=== PATIENT | male | born 1930 | race Caucasian/White ===

== ENCOUNTER 2017-10-15 06:43 | Day surgery (SDC) | payer MEDICARE ==
[2017-10-15] MEDS ORDERED: Propofol 200 MG/20 ML SDV ONE (07:03)
[2017-10-15] MEDS ORDERED: Dextrose 5%-Lactated Ringers 1,000 ML IV SCH (07:30)
[2017-10-15] MEDS ORDERED: Pantoprazole 40 MG Vial IVPUSH ONE (09:20)
[2017-10-15 10:06] VITALS: BP 140/71
--- NOTE | 2017-10-24 22:33 | OR ---
DATE OF PROCEDURE: 10/15/2017 PREOPERATIVE DIAGNOSIS: Probable gastroesophageal reflux disease. POSTOPERATIVE DIAGNOSES: 1. Active gastroesophageal reflux disease associated with a moderate-sized hiatal hernia and large area of ulceration at esophagogastric junction. 2. Diffuse intense gastritis. OPERATIVE PROCEDURES: Esophagogastroduodenoscopy with; 1. Biopsies of antrum for CLOtest (42003). 2. Brushings of esophageal ulcer (05072). ANESTHESIA: IV sedation. INDICATION FOR PROCEDURE: An 86-year-old male presenting with quite marked epigastric pain and heartburn. He is presently on omeprazole 40 mg a day. The plan is to proceed with upper GI endoscopy with biopsies as indicated. Potential risks including bleeding and perforation were discussed, and the patient wishes to proceed. DETAILS OF PROCEDURE: The patient was taken to the operating room and placed in a left lateral decubitus position. IV sedation was administered, after which the upper GI endoscope was passed orally through the length of the esophagus and into the stomach with retroflexion view of the fundus, and thereafter through the pyloric channel and into the proximal duodenum. Findings included normal hypopharynx, larynx, upper esophageal sphincter, and esophageal body. At the EG junction, the patient was noted to have a moderate-sized hiatal hernia and quite intense esophagitis present. There is a large ulcer located more or less right at the esophagogastric junction, covered with some fibrinous exudate. This tissue was quite friable. There was no stricture or gross evidence of neoplasia. Within the stomach, there was more or less diffuse gastritis, which was fairly intense, particularly in the antrum. The pyloric channel and visualized portions of the duodenum were unremarkable. At this point, biopsies were obtained from the antrum and sent for CLOtest for H. pylori and then brushings were obtained from the esophageal ulcer rather than biopsies given the patient's coumadinized state and that tissue being quite friable and thought to be at risk for post- biopsy bleeding. Two sets of brushings were made dragging up the brush across the area of ulceration and minimal bleeding from either the biopsy site in antrum or the brushing site was noted. At this point, the scope was then withdrawn, and the procedure then concluded. At this point, we will have the patient hold omeprazole. We will start him on Protonix 40 mg daily and also 1 gram of Carafate p.o. q.i.d. The patient will be scheduled for a repeat upper endoscopy in 4 weeks to determine whether or not things are healed. He will be instructed to hold his Coumadin for 5 days prior to that procedure in the event that we want to do some additional biopsies in the area of the esophagogastric junction. Juan Cantrell MD /[id number]
== END 2017-10-15 10:31 ==
LOC: JP.SDS 06:43
PROVIDERS: ATTEND Surgery
DX: K21.9 Gastro-esophageal reflux disease without esophagitis (principal); K22.10 Ulcer of esophagus without bleeding; K29.70 Gastritis, unspecified, without bleeding; K20.9 Esophagitis, unspecified; K44.9 Diaphragmatic hernia without obstruction or gangrene; I25.10 Atherosclerotic heart disease of native coronary artery without angina pectoris; E78.5 Hyperlipidemia, unspecified; I69.354 Hemiplegia and hemiparesis following cerebral infarction affecting left non-dominant side; I48.91 Unspecified atrial fibrillation; Z79.899 Other long term (current) drug therapy; Z88.0 Allergy status to penicillin
CPT/HCPCS: 36415; 43239; 85610; 87081; 88112; 88305; C9113; J2704; J7042

== ENCOUNTER 2017-11-12 06:58 | Day surgery (SDC) | payer MEDICARE ==
[2017-11-12] MEDS ORDERED: Dextrose 5%-Lactated Ringers 1,000 ML IV SCH (07:30)
[2017-11-12] MEDS ORDERED: Albuterol/Ipratropium 3.0-0.5 MG/3 ML Neb Soln NEB ONE (07:45)
[2017-11-12] MEDS ORDERED: Glycopyrrolate 0.2 MG/ML 2 ML SDV IVPUSH ONE (08:00)
[2017-11-12] MEDS ORDERED: Propofol 200 MG/20 ML SDV ONE (08:05)
[2017-11-12 09:30] VITALS: BP 116/76
--- NOTE | 2017-11-15 09:14 | OR ---
DATE OF PROCEDURE: 11/12/2017 PREOPERATIVE DIAGNOSIS: History of severe gastroesophageal reflux disease. POSTOPERATIVE DIAGNOSES: 1. Healed esophagitis. 2. Mild antral gastritis. OPERATIVE PROCEDURE: Esophagogastroduodenoscopy with antral biopsies for CLOtest. ANESTHESIA: IV sedation. INDICATIONS FOR PROCEDURE: This is an 87-year-old male with severe esophagitis. He had been on omeprazole at that point, and after that area had been evaluated, he was switched to Protonix plus Carafate and seems to be less symptomatic. At this point, plan is to repeat upper endoscopy with biopsies and/or dilation as indicated. Potential risks including bleeding and perforation were reviewed, and the patient wishes to proceed. DETAILS OF PROCEDURE: The patient was taken to the operating room and placed in a left lateral decubitus position. IV sedation was administered, after which the upper GI endoscope was passed orally through the length of the esophagus and stomach with retroflexion view of the fundus, and thereafter through the pyloric channel into the proximal duodenum. Findings at this time showed the previously quite severe esophagitis to be entirely healed. The mucosa was entirely smooth then with no signs of redness, friability, and appeared to be remarkably well-healed at this time. The patient did, as expected, have some degree of hiatal hernia. Within the stomach, there was some mild redness in the antrum. Biopsies were obtained and they were sent for CLOtest for H. pylori. Minimal bleeding from the biopsy site was seen and the procedure then concluded. Given the patient previously had been on proton pump inhibitor alone but still had the severe esophagitis, I would recommend keeping him on the combination of Carafate and Protonix long-term which he seems to be tolerating, and followup endoscopy may be necessary only if new symptoms develop. Juan Cantrell MD /[id number]
== END 2017-11-12 10:11 ==
LOC: JP.SDS 06:58
PROVIDERS: ATTEND Surgery
DX: K21.9 Gastro-esophageal reflux disease without esophagitis (principal); K44.9 Diaphragmatic hernia without obstruction or gangrene; K29.70 Gastritis, unspecified, without bleeding; J44.9 Chronic obstructive pulmonary disease, unspecified; E78.5 Hyperlipidemia, unspecified
CPT/HCPCS: 43239; 87081; 94640; J2704; J7042; J7620; J3490

== ENCOUNTER 2018-01-27 15:49 | Inpatient (IN) | payer MEDICARE, MEDICAID ==
[2018-01-27] MEDS ORDERED: Albuterol 0.083% 2.5 MG/3 ML Neb Soln NEB PRN (16:21)
[2018-01-27] MEDS ORDERED: Furosemide 40 MG/4 ML VIAL IVPUSH ONE (16:22)
[2018-01-27] MEDS ORDERED: Polyethylene Glycol 3350 Powder 17 GM Packet PO PRN (16:48)
[2018-01-27] MEDS ORDERED: Ondansetron 4 MG Tab.DIS PO PRN (16:48)
[2018-01-27] MEDS ORDERED: Sodium Chloride 0.9% 10 ML Syringe FLUSH PRN (16:48)
--- NOTE | 2018-01-27 17:01 | PCM.HP ---
H&P History of Present Illness - General Date of Service: 01/27/18 Admit Problem/Dx: Admission Diagnosis/Problem Admission Diagnosis/Problem CHF, Congestive heart failure Source of Information: Patient, Provider History Limitations: Reports: Other (hard of hearing) - History of Present Illness Initial Comments - Free Text/Narative: John presents today as a direct admission from the walk-in clinic where he presented with shortness of breath and wheezing. History is a little bit difficult to gather because he is hard of hearing. he was seen in the long-term a week ago and thought to be in mild congestive heart failure and was started on a low dose of furosemide. Despite this he has had slow progression of his shortness of breath and intermittent wheezing. He reports mild chest tightness that has been present for approximately one month. He does feel short of breath but doesn't think he's been coughing very much. He is not aware of any fevers. He reports a funny feeling in his head that he has some difficulty describing. He says it's kind of a dizziness. He does not endorse headache. He has some mild generalized abdominal pain that has been present for at least 2 weeks. No bowel movement for several days. He reports years of difficulty with passing urine but this is not any worse than usual. He was seen in the clinic today and noted to have increased work of breathing. Chest x-ray was concerning for congestive heart failure. He was admitted for further management. - Related Data Allergies/Adverse Reactions: Allergies Allergy/AdvReac Type Severity Reaction Status Date / Time Penicillins Allergy Intermediate Dizziness Verified 11/12/17 07:17 Latex, Natural Rubber Allergy Rash Verified 11/12/17 07:17 Home Medications: Home Meds Alendronate Sodium [Fosamax] 70 mg PO .WEEKLY 12/13/14 [History] Budesonide [Pulmicort] 2 ml IH BID 12/13/14 [History] Gabapentin [Neurontin] 300 mg PO BEDTIME 12/13/14 [History] Metoprolol Tartrate 12.5 mg PO BID 12/13/14 [History] Multivitamin [Multivitamins] 1 cap PO DAILY 12/13/14 [History] Tamsulosin [Flomax] 0.4 mg PO BEDTIME 12/13/14 [History] levETIRAcetam [Keppra] 500 mg PO BID 12/13/14 [History] predniSONE [Prednisone] 4 mg PO QAM 12/13/14 [History] Ipratropium/Albuterol Sulfate [Iprat-Albut 0.5-3(2.5) mg/3 ml] 1 ampule IH QID 08/12/15 [History] Acetaminophen [Tylenol] 650 mg PO QID 10/14/17 [History] Ipratropium [Atrovent 0.03% Nasal [place]] 2 spray INH BID 10/14/17 [History] Linaments 1 pad TOP DAILY PRN 10/14/17 [History] Menthol/Methyl Salicylate [BenGay Ultra Strength Crm] 1 applic TOP QID 10/14/17 [History] Leuprolide Acetate [Lupron Depot (Lupaneta)] 30 mg IM ASDIRECTED 10/15/17 [ History] Hydrocortisone [Hydrocortisone 2.5% Crm] 1 applic TOP TID PRN 11/07/17 [History] Sucralfate [Carafate] 1 gm PO QID 11/12/17 [History] Acetaminophen 650 mg PO Q6H PRN 01/27/18 [History] Albuterol/Ipratropium [DuoNeb 3.0-0.5 MG/3 ML] 3 ml INH Q4H PRN 01/27/18 [ History] Calcium Carbonate/Vitamin D3 [Calcium 600-Vit D3 800 Tablet] 1 tab PO BID [History] Carboxymethylcellulose Sodium [Refresh Tears] 1 drop EYEBOTH BID 01/27/18 [ History] Furosemide 20 mg PO DAILY 01/27/18 [History] Olopatadine [Patanol 0.1% [facility]] 2 drop EYEBOTH BID 01/27/18 [History] Pantoprazole [ProTONIX] 40 mg PO DAILY 01/27/18 [History] Sertraline [Zoloft] 25 mg PO DAILY 01/27/18 [History] Simvastatin [Zocor] 40 mg PO BEDTIME 01/27/18 [History] Warfarin [Coumadin] 7.5 mg PO ASDIRECTED 01/27/18 [History] Warfarin [Coumadin] 10 mg PO WEEKLY 01/27/18 [History] Past Medical History HEENT History: Reports: Hard of Hearing, Impaired Vision, Macular Degeneration Cardiovascular History: Reports: Afib, CAD, High Cholesterol, Hypertension Respiratory History: Reports: COPD Gastrointestinal History: Reports: Cholelithiasis, Chronic Constipation, GERD Genitourinary History: Reports: BPH Other Genitourinary History: prostate ca Musculoskeletal History: Reports: Other (See Below) Other Musculoskeletal History: patient states broke left hip in 2015. Neurological History: Reports: CVA, Seizure Psychiatric History: Reports: Depression Endocrine/Metabolic History: Reports: Diabetes, Type II Hematologic History: Reports: Anticoagulation Therapy Oncologic (Cancer) History: Reports: Prostate Dermatologic History: Reports: None - Infectious Disease History Infectious Disease History: Reports: Chicken Pox, Measles, Mumps - Past Surgical History HEENT Surgical History: Reports: None Cardiovascular Surgical History: Reports: Coronary Artery Bypass Respiratory Surgical History: Reports: None GI Surgical History: Reports: Cholecystectomy, EGD Male Surgical History: Reports: None Endocrine Surgical History: Reports: None Neurological Surgical History: Reports: None Social & Family History - Family History Cardiac: Reports: CAD - Tobacco Use Smoking Status *Q: Current Every Day Smoker - Caffeine Use Caffeine Use: Reports: Coffee - Alcohol Use Alcohol Use History: No H&P Review of Systems - Review of Systems: Review Of Systems: See Below Free Text/Narrative: A complete 12 point review of systems was obtained. Pertinent positives and negatives are noted in the history of present illness. All other systems were reviewed and were negative except as noted. Exam - Exam Exam: See Below - Vital Signs Vital Signs: Last Vital Signs Temp 36.3 C 01/27/18 16:15 Pulse 84 01/27/18 16:15 Resp 20 01/27/18 16:15 BP 134/88 01/27/18 16:15 Pulse Ox 94 L 01/27/18 16:15 - Exam Quality Assessment: No: Supplemental Oxygen General: Alert, Oriented, Cooperative, Mild Distress (increased work of breathing) HEENT: Conjunctiva Clear, Mucosa Moist & [place]. No: Scleral Icterus Neck: Supple, Trachea Midline. No: Lymphadenopathy Lungs: Crackles (both lung bases), Wheezing (moderate expiratory). No: Normal Respiratory Effort (increased work of breathing) Cardiovascular: Regular Rate, Regular Rhythm, Systolic Murmur GI/Abdominal Exam: Soft, Non-Tender, Tender, Abnormal Bowel Sounds (hypoactive) Extremities: Pedal Edema. No: Increased Warmth Peripheral Pulses: 2+: Dorsalis Pedis (L), Dorsalis Pedis (R) Skin: Warm, Dry Neuro Extensive - Mental Status: Alert, Normal Mood/Affect Neuro Extensive - Motor, Sensory, Reflexes: CN II-XII Intact. No: Dysarthria, Tremor Psychiatric: Alert, Normal Affect - Patient Data Lab Results Last 24 hrs: Laboratory Results - last 24 hr 01/27/18 Range/Units 16:40 WBC 7.1 (4.5-11.0) K/uL RBC 3.47 L (4.30-5.90) M/uL Hgb 11.9 L (12.0-15.0) g/dL Hct 36.1 L (40.0-54.0) % MCV 104 H (80-98) fL MCH 34 H (27-31) pg MCHC 33 (32-36) % Plt Count 285 (150-400) K/uL Neut % (Auto) 64 (36-66) % Lymph % (Auto) 25 (24-44) % Rooks % (Auto) 10 H (2-6) % Eos % (Auto) 1 L (2-4) % Baso % (Auto) 0 (0-1) % Result Diagrams: 01/27/18 16:40 Imaging Impressions Last 24 hrs: chest x-ray - images from the clinic were personally reviewed - there is evidence for cardiomegaly as well as small bilateral effusions, right slightly greater than left. There is pulmonary vascular congestion and slightly asymmetric interstitial changes with the right more prominent than the left. Findings appear very compatible with congestive heart failure. *Q Meaningful Use (ADM) - VTE Risk Assess *Q Each Risk Factor Represents 1 Point: Swollen Legs, Current, Obesity ( BMI > 25 kg/m2), Congestive heart failure (CHF), Abnormal Pulmonary Function (COPD) Total Score 1 Point Risk Factors: 4 Each Risk Factor Represents 2 Points: Malignancy (present or previous) Total Score 2 Point Risk Factors: 2 Each Risk Factor Represents 3 Points: Age 75 Years or Greater Total Score 3 Point Risk Factors: 3 Each Risk Factor Represents 5 Points: None Total Score 5 Point Risk Factors: 0 Venous Thromboembolism Risk Factor Score *Q: 9 - Problem List (1) Congestive heart failure SNOMED Code(s): 24847987 ICD Code: I50.9 - HEART FAILURE, UNSPECIFIED Status: Acute Current Visit : Yes Qualifiers: Heart failure type: diastolic Heart failure chronicity: acute on chronic Qualified Code(s): I50.33 - Acute on chronic diastolic (congestive) heart failure (2) Paroxysmal atrial fibrillation SNOMED Code(s): 313285956 ICD Code: I48.0 - PAROXYSMAL ATRIAL FIBRILLATION Status: Chronic Current Visit: Yes (3) Coronary artery disease SNOMED Code(s): 37919850 ICD Code: I25.10 - ATHSCL HEART DISEASE OF [place] CORONARY ARTERY W/O ANG PCTRS Status: Chronic Current Visit: Yes Qualifiers: Coronary Disease-Associated Artery/Lesion type: [place]ig artery [place] vs. transplanted heart: craig heart Associated angina: without angina Qualified Code(s): I25.10 - Atherosclerotic heart disease of [place] coronary artery without angina pectoris (4) Cerebrovascular disease SNOMED Code(s): 68111700 ICD Code: I67.9 - CEREBROVASCULAR DISEASE, UNSPECIFIED Status: Chronic Current Visit: Yes (5) Prostate cancer SNOMED Code(s): 615780618 ICD Code: C61 - MALIGNANT NEOPLASM OF PROSTATE Status: Chronic Current Visit: Yes Problem List Initiated/Reviewed/Updated: Yes Orders Last 24hrs: Active Orders 24 hr Category Date Time Status Patient Status [ADT] Routine ADT 01/27/18 16:49 Ordered Bedrest Bathroom Privileges [RC] ASDIRECTED Care 01/27/18 16:48 Ordered EKG Documentation Completion [RC] ASDIRECTED Care 01/27/18 16:22 Ordered Height and Weight [RC] DAILY Care 01/27/18 16:48 Ordered Insert Bañuelos Catheter [Insert Urinary Catheter] [OM.PC] Care 01/27/18 16:30 Ordered Q24H Intake and Output [RC] QSHIFT Care 01/27/18 16:50 Ordered Notify Provider Vital Signs [RC] ASDIRECTED Care 01/27/18 16:50 Ordered Oxygen Therapy [RC] PRN Care 01/27/18 16:49 Ordered RT Aerosol Therapy [RC] ASDIRECTED Care 01/27/18 16:21 Ordered Up With Assistance [RC] ASDIRECTED Care 01/27/18 16:48 Ordered Urinary Catheter Assessment [RC] ASDIRECTED Care 01/27/18 16:22 Ordered VTE/DVT Education [RC] Per Unit Routine Care 01/27/18 16:49 Ordered Vital Signs [RC] Q4H Care 01/27/18 16:49 Ordered 2 Gram Sodium Diet [DIET] Diet 01/27/18 Dinner Ordered Echo Comp wo Cont [US] Routine Exams 01/28/18 07:00 Ordered BASIC METABOLIC PANEL,BMP [CHEM] AM Lab 01/28/18 05:11 Ordered BASIC METABOLIC PANEL,BMP [CHEM] Urgent Lab 01/27/18 16:21 Ordered INR,PT,PROTHROMBIN TIME [COAG] AM Lab 01/28/18 05:11 Ordered INR,PT,PROTHROMBIN TIME [COAG] Urgent Lab 01/27/18 16:22 Ordered MAGNESIUM [CHEM] Urgent Lab 01/27/18 16:22 Ordered TROPONIN I [CHEM] Urgent Lab 01/27/18 16:22 Ordered TSH ULTRASENSITIVE [CHEM] Urgent Lab 01/27/18 16:22 Ordered UA W/MICROSCOPIC [URIN] Routine Lab 01/27/18 16:48 Ordered Acetaminophen [Tylenol] Med 01/27/18 16:21 Ordered 650 mg PO Q4H PRN Acetaminophen [Tylenol] Med 01/27/18 22:00 Ordered 650 mg PO QID Albuterol [Proventil Neb Soln] Med 01/27/18 16:21 Ordered 2.5 mg NEB Q4H PRN Albuterol/Ipratropium [DuoNeb 3.0-0.5 MG/3 ML] Med 01/27/18 22:00 Ordered 1 ampule INH QID Budesonide [Pulmicort] Med 01/27/18 21:00 Ordered 0.5 mg INH BID Carboxymethylcellulose Sodium [Refresh Tears] Med 01/27/18 21:00 Ordered 1 drop EYEBOTH BID Docusate Sodium/Sennosides [Senna Plus] Med 01/27/18 16:48 Ordered 1 tab PO BID PRN Furosemide [Lasix] Med 01/28/18 09:00 Ordered 40 mg IVPUSH DAILY Gabapentin [Neurontin] Med 01/27/18 21:00 Ordered 300 mg PO BEDTIME Ipratropium [Atrovent 0.03% Nasal [place]] Med 01/27/18 21:00 Ordered 2 spray RAFAT BID Metoprolol Tartrate [Lopressor] Med 01/27/18 21:00 Ordered 12.5 mg PO BID Olopatadine [Patanol 0.1% Ophth Soln] Med 01/27/18 21:00 Ordered 2 drop EYEBOTH BID Ondansetron [Zofran ODT] Med 01/27/18 16:48 Ordered 4 mg PO Q6H PRN Pantoprazole [ProTONIX] Med 01/28/18 09:00 Ordered 40 mg PO DAILY Polyethylene Glycol 3350 [MiraLAX] Med 01/27/18 16:48 Ordered 17 gm PO DAILY PRN Sertraline [Zoloft] Med 01/28/18 09:00 Ordered 25 mg PO DAILY Simvastatin [Zocor] Med 01/27/18 21:00 Ordered 40 mg PO BEDTIME Sodium Chloride 0.9% [Saline Flush] Med 01/27/18 16:48 Ordered 10 ml FLUSH ASDIRECTED PRN Sucralfate [Carafate] Med 01/27/18 22:00 Ordered 1 gm PO QID Tamsulosin [Flomax] Med 01/27/18 21:00 Ordered 0.4 mg PO BEDTIME Warfarin [Coumadin] Med 01/28/18 13:00 Ordered 7.5 mg PO DAILY@1300 levETIRAcetam [Keppra] Med 01/27/18 21:00 Ordered 500 mg PO BID predniSONE Med 01/28/18 09:00 Ordered 4 mg PO QAM Saline Lock Insert [OM.PC] Routine Oth 01/27/18 16:48 Ordered Resuscitation Status Routine Resus Stat 01/27/18 16:48 Ordered EKG 12 Lead [EK] Urgent Ther 01/27/18 16:22 Ordered Medication Orders Acetaminophen (Tylenol) 650 mg PO Q4H PRN PRN Reason: Pain/Fever Acetaminophen (Tylenol) 650 mg PO QID AGNES Albuterol (Proventil Neb Soln) 2.5 mg NEB Q4H PRN PRN Reason: Shortness of Breath Albuterol/Ipratropium (Duoneb 3.0-0.5 Mg/3 Ml) ml INH QID AGNES Budesonide (Pulmicort) 0.5 mg INH BID AGNES Furosemide (Lasix) 40 mg IVPUSH DAILY AGNES Gabapentin (Neurontin) 300 mg PO BEDTIME AGNES Ipratropium [place] (Atrovent 0.03% Nasal [place]) ml RAFAT BID AGNES Metoprolol Tartrate (Lopressor) 12.5 mg PO BID [facility] Non-Formulary Medication (Carboxymethylcellulose Sodium [Refresh Tears]) 1 drop EYEBOTH BID AGNES Non-Formulary Medication (Levetiracetam [Keppra]) 500 mg PO BID [facility] Non-Formulary Medication (Olopatadine [Patanol 0.1% Ophth Soln]) 2 drop EYEBOTH BID AGNES Non-Formulary Medication (Simvastatin [Zocor]) 40 mg PO BEDTIME [facility] Non-Formulary Medication (Warfarin [Coumadin]) 7.5 mg PO DAILY@1300 [facility] Ondansetron HCl (Zofran Odt) 4 mg PO Q6H PRN PRN Reason: Nausea able to take PO Pantoprazole Sodium (Protonix) 40 mg PO DAILY [facility] Polyethylene Glycol (Miralax) 17 gm PO DAILY PRN PRN Reason: Constipation Prednisone (Prednisone) 4 mg PO QAM [facility] Senna/Docusate Sodium (Senna Plus) 1 tab PO BID PRN PRN Reason: Constipation Sertraline HCl (Zoloft) 25 mg PO DAILY [facility] Sodium Chloride (Saline Flush) 10 ml FLUSH ASDIRECTED PRN PRN Reason: Keep Vein Open Sucralfate (Carafate) 1 gm PO QID [facility] Tamsulosin HCl (Flomax) 0.4 mg PO BEDTIME [facility] Assessment/Plan Comment:: ASSESSMENT AND PLAN - Congestive heart failure - history of diastolic dysfunction on most recent echocardiogram. Chest x-ray and history compatible with congestive heart failure and examination fits as well. Cardiac silhouette does appear larger and he would benefit from reevaluation of left ventricular function. He has been on low-dose diuretics as outpatient but continues to be getting worse. He is not currently hypoxic but does have increased work of breathing. -Place Bañuelos catheter -Furosemide 40 mg 1 now -Basic metabolic panel -strict intake and output monitoring -Daily weights -Echocardiogram in the morning Paroxysmal atrial fibrillation - currently appears to be in sinus but EKG is pending. He is chronically anticoagulated. -Continue beta katherin -Continue anticoagulation, pending INR results Coronary artery disease - patient reports one month of chest pain though his story is atypical and I suspect not related to coronary artery disease. 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 -Continue antiepileptic medication Maintenance issues - - DVT prophylaxis - warfarin - GI prophylaxis - PPI - Nutrition - low sodium - Bañuelos catheter - will be placed for strict intake and output monitoring in the setting of urinary obstruction secondary to prostate cancer. CODE STATUS - DNR/DNI Admission justification - This patient will be admitted for inpatient services and is medically appropriate meeting medical necessity for inpatient admission as outlined in my documentation. I reasonably expect the patient will require inpatient services that span a period time over 2 midnights. I reasonably expect this patient to be discharged or transferred within [address] [facility]. Disposition - anticipate discharge back to the long-term after the hospital stay Primary care physician - Dr Karla Qiu M.D.
[2018-01-27] MEDS ORDERED: Aspirin 81 MG Tab.Chew PO ONE (17:42)
--- NOTE | 2018-01-27 17:45 | PCM.SN ---
- Free Text/Narrative Note: troponin level returned elevated at 2.3. EKG showed some nonspecific T-wave changes and slight ST depressions in leads 1, aVL and V5 and V6. I discussed the situation with the patient, his and 2 daughters. He will be receiving aspirin. He will have morphine for pain. We will get serial troponin levels and determine the course of action tomorrow morning unless his condition worsens overnight since there is no obvious reason for urgent/emergent transfer at this time. His daughters report that he has been having chest pain for several days and he told me for the past month. Serial troponin levels should give us a better idea of the troponin trend. Echocardiogram will also be available in the morning. Jose Enrique Qiu MD
[2018-01-27] MEDS: Acetaminophen 325 MG Tab PO PRN (18:06)
[2018-01-27] MEDS: Morphine 2 MG/ML Syringe IVPUSH PRN ×3 (18:07→23:19)
[2018-01-27] MEDS ORDERED: Aspirin 81 MG Tab.Chew ONE (18:15)
[2018-01-27] MEDS ORDERED: Budesonide 0.5 MG/2 ML Neb Susp INH SCH (21:00)
[2018-01-27] MEDS: levETIRAcetam 250 MG Tab PO SCH (21:03)
[2018-01-27] MEDS: Sucralfate 1 GM Tab PO SCH (21:04)
[2018-01-27] MEDS: Acetaminophen 325 MG Tab PO SCH (21:04)
[2018-01-27] MEDS: Tamsulosin 0.4 MG Cap.ER PO SCH (21:04)
[2018-01-27] MEDS: Gabapentin 300 MG Cap PO SCH (21:04)
[2018-01-27] MEDS: Simvastatin 20 MG Tab PO SCH (21:05)
[2018-01-27] MEDS: Albuterol/Ipratropium 3.0-0.5 MG/3 ML Neb Soln INH SCH (21:05)
[2018-01-27] MEDS: Metoprolol Tartrate 25 MG Tab PO SCH (21:05)
[2018-01-27] MEDS: Hypromellose 0.4% Ophth Soln 15 ML Bottle EYEBOTH SCH (21:06)
[2018-01-27] MEDS: Ketotifen 0.025% Ophth Soln 5 ML Bottle EYEBOTH SCH (21:06)
[2018-01-27] MEDS: Ipratropium 0.03% Nasal Spray 30 ML Bot NAS SCH (21:20)
[2018-01-28] MEDS: Acetaminophen 325 MG Tab PO PRN (00:04)
[2018-01-28] MEDS: Morphine 2 MG/ML Syringe IVPUSH PRN ×4 (01:01→23:17)
[2018-01-28] MEDS: Sucralfate 1 GM Tab PO SCH ×5 (06:24→21:01)
[2018-01-28] MEDS: Acetaminophen 325 MG Tab PO SCH ×4 (06:25→21:02)
[2018-01-28] MEDS: Albuterol/Ipratropium 3.0-0.5 MG/3 ML Neb Soln INH SCH ×5 (06:25→21:02)
--- NOTE | 2018-01-28 07:54 | PCM.SN ---
- Free Text/Narrative Note: call from 2 [facility] lab results O Troponin at 1600 2.307, 8pm 2.109, 0400 2.320 vital signs stable,denies chest pain or shortness of breath a; troponin elevated but stable p; continue to monitor.
[2018-01-28] MEDS: Budesonide 0.5 MG/2 ML Neb Susp INH SCH ×2 (07:55→21:02)
[2018-01-28] MEDS: Pantoprazole 40 MG Tab.CR PO SCH (08:41)
[2018-01-28] MEDS: Ipratropium 0.03% Nasal Spray 30 ML Bot NAS SCH ×2 (08:41→21:01)
[2018-01-28] MEDS: Aspirin 81 MG Tab.EC PO SCH (08:41)
[2018-01-28] MEDS: Ketotifen 0.025% Ophth Soln 5 ML Bottle EYEBOTH SCH ×2 (08:42→20:58)
[2018-01-28] MEDS: levETIRAcetam 250 MG Tab PO SCH ×2 (08:42→20:59)
[2018-01-28] MEDS: Metoprolol Tartrate 25 MG Tab PO SCH ×2 (08:50→20:58)
[2018-01-28] MEDS: Hypromellose 0.4% Ophth Soln 15 ML Bottle EYEBOTH SCH ×2 (08:50→20:58)
[2018-01-28] MEDS: Sertraline 25 MG Tab PO SCH (08:51)
[2018-01-28] MEDS ORDERED: Furosemide 40 MG/4 ML VIAL IVPUSH SCH (09:00)
[2018-01-28] MEDS ORDERED: predniSONE 1 MG Tab PO SCH (09:00)
--- NOTE | 2018-01-28 09:20 | PCM.PN ---
- General Info Date of Service: 01/28/18 - Review of Systems General: Reports: Weakness. Denies: Fever Pulmonary: Reports: Shortness of Breath Cardiovascular: Reports: Chest Pain Neurological: Reports: Confusion Systems Review Comment:: There were no acute events overnight. Patient did have several doses of morphine for headache. Urine output was not impressive after the dose of furosemide. He is on supplemental oxygen this morning. He is somnolent and very difficult to get a history from this morning. He had reported a funny feeling in his head to the night nurses but had not been complaining of chest pain. Serial troponin levels have been elevated but stable at 2.3. - Patient Data Vitals - Most Recent: Last Vital Signs Temp 35.7 C 01/28/18 07:00 Pulse 62 01/28/18 08:50 Resp 20 01/28/18 07:00 BP 97/66 01/28/18 08:50 Pulse Ox 78 L 01/28/18 07:00 Weight - Most Recent: 90.582 kg I&O - Last 24 Hours: Intake & Output 01/27/18 01/28/18 01/28/18 22:59 06:59 14:59 Output Total 550 350 Balance -550 -350 Lab Results Last 24 Hours: Laboratory Results - last 24 hr 01/27/18 01/27/18 01/27/18 Range/Units 16:40 16:40 16:40 WBC 7.1 (4.5-11.0) K/uL RBC 3.47 L (4.30-5.90) M/uL Hgb 11.9 L (12.0-15.0) g/dL Hct 36.1 L (40.0-54.0) % MCV 104 H (80-98) fL MCH 34 H (27-31) pg MCHC 33 (32-36) % Plt Count 285 (150-400) K/uL Neut % (Auto) 64 (36-66) % Lymph % (Auto) 25 (24-44) % [place] % (Auto) 10 H (2-6) % Eos % (Auto) 1 L (2-4) % Baso % (Auto) 0 (0-1) % PT 30.8 H (9.5-12.0) sec INR 2.98 H (0.80-1.20) Sodium 128 L (140-148) mmol/L Potassium 4.7 (3.6-5.2) mmol/L Chloride 95 L (100-108) mmol/L Carbon Dioxide 25 (21-32) mmol/L Anion Gap 12.7 (5.0-14.0) mmol/L BUN 17 D (7-18) mg/dL Creatinine 0.8 (0.8-1.3) mg/dL Est Cr Clr Drug Dosing TNP Estimated GFR (MDRD) > 60 (>60) Glucose 141 H (74-106) mg/dL Calcium 8.5 (8.5-10.1) mg/dL Magnesium (1.8-2.4) mg/dL Troponin I (0.000-0.056) ng/mL TSH, Ultra Sensitive (0.358-3.740) uIU/mL Urine Color Urine Appearance Urine pH (4.5-8.0) Ur Specific [place] (1.008-1.030) Urine Protein (NEGATIVE) mg/dL Urine Glucose (UA) (NEGATIVE) mg/dL Urine Ketones (NEGATIVE) mg/dL Urine Occult Blood (NEGATIVE) Urine Nitrite (NEGAITVE) Urine Bilirubin (NEGATIVE) Urine Urobilinogen (NORMAL) mg/dL Ur Leukocyte Esterase (NEGATIVE) Urine RBC (0-5) Urine WBC (0-5) Ur Epithelial Cells Amorphous Sediment Urine Bacteria Urine Mucus 01/27/18 01/27/18 01/27/18 Range/Units 16:40 19:15 23:00 WBC (4.5-11.0) K/uL RBC (4.30-5.90) M/uL Hgb (12.0-15.0) g/dL Hct (40.0-54.0) % MCV (80-98) fL MCH (27-31) pg MCHC (32-36) % Plt Count (150-400) K/uL Neut % (Auto) (36-66) % Lymph % (Auto) (24-44) % [place] % (Auto) (2-6) % Eos % (Auto) (2-4) % Baso % (Auto) (0-1) % PT (9.5-12.0) sec INR (0.80-1.20) Sodium (140-148) mmol/L Potassium (3.6-5.2) mmol/L Chloride (100-108) mmol/L Carbon Dioxide (21-32) mmol/L Anion Gap (5.0-14.0) mmol/L BUN (7-18) mg/dL Creatinine (0.8-1.3) mg/dL Est Cr Clr Drug Dosing Estimated GFR (MDRD) (>60) Glucose (74-106) mg/dL Calcium (8.5-10.1) mg/dL Magnesium 2.1 (1.8-2.4) mg/dL Troponin I 2.307 H* 2.190 H* (0.000-0.056) ng/mL TSH, Ultra Sensitive 2.090 (0.358-3.740) uIU/mL Urine Color Yellow Urine Appearance Clear Urine pH 6.5 (4.5-8.0) Ur Specific [place] 1.015 (1.008-1.030) Urine Protein Negative (NEGATIVE) mg/dL Urine Glucose (UA) Normal (NEGATIVE) mg/dL Urine Ketones Negative (NEGATIVE) mg/dL Urine Occult Blood Large (NEGATIVE) Urine Nitrite Negative (NEGAITVE) Urine Bilirubin Negative (NEGATIVE) Urine Urobilinogen Normal (NORMAL) mg/dL Ur Leukocyte Esterase Negative (NEGATIVE) Urine RBC 30-40 H (0-5) Urine WBC Not seen (0-5) Ur Epithelial Cells Rare Amorphous Sediment Not seen Urine Bacteria Few Urine Mucus Few 01/28/18 01/28/18 01/28/18 Range/Units 05:00 05:11 05:11 WBC (4.5-11.0) K/uL RBC (4.30-5.90) M/uL Hgb (12.0-15.0) g/dL Hct (40.0-54.0) % MCV (80-98) fL MCH (27-31) pg MCHC (32-36) % Plt Count (150-400) K/uL Neut % (Auto) (36-66) % Lymph % (Auto) (24-44) % [place] % (Auto) (2-6) % Eos % (Auto) (2-4) % Baso % (Auto) (0-1) % PT 27.5 H (9.5-12.0) sec INR 2.64 H (0.80-1.20) Sodium 130 L (140-148) mmol/L Potassium 4.2 (3.6-5.2) mmol/L Chloride 95 L (100-108) mmol/L Carbon Dioxide 29 (21-32) mmol/L Anion Gap 10.2 (5.0-14.0) mmol/L BUN 20 H (7-18) mg/dL Creatinine 0.9 (0.8-1.3) mg/dL Est Cr Clr Drug Dosing 56.04 Estimated GFR (MDRD) > 60 (>60) Glucose 125 H (74-106) mg/dL Calcium 8.7 (8.5-10.1) mg/dL Magnesium (1.8-2.4) mg/dL Troponin I 2.320 H* (0.000-0.056) ng/mL TSH, Ultra Sensitive (0.358-3.740) uIU/mL Urine Color Urine Appearance Urine pH (4.5-8.0) Ur Specific [place] (1.008-1.030) Urine Protein (NEGATIVE) mg/dL Urine Glucose (UA) (NEGATIVE) mg/dL Urine Ketones (NEGATIVE) mg/dL Urine Occult Blood (NEGATIVE) Urine Nitrite (NEGAITVE) Urine Bilirubin (NEGATIVE) Urine Urobilinogen (NORMAL) mg/dL Ur Leukocyte Esterase (NEGATIVE) Urine RBC (0-5) Urine WBC (0-5) Ur Epithelial Cells Amorphous Sediment Urine Bacteria Urine Mucus Med Orders - Current: Current Medications Acetaminophen (Tylenol) 650 mg PO Q4H PRN PRN Reason: Pain/Fever Last Admin: 01/28/18 00:04 Dose: 650 mg Acetaminophen (Tylenol) 650 mg PO QID [facility] Last Admin: 01/28/18 06:25 Dose: 650 mg Albuterol (Proventil Neb Soln) 2.5 mg NEB Q4H PRN PRN Reason: Shortness of Breath Last Admin: 01/27/18 19:35 Dose: 2.5 mg Albuterol/Ipratropium (Duoneb 3.0-0.5 Mg/3 Ml) 3 ml INH QID [facility] Last Admin: 01/28/18 06:25 Dose: 3 ml Artificial Tears (Natural Balance Tears) 0 ml EYEBOTH BID [facility] Last Admin: 01/28/18 08:50 Dose: 1 drop Aspirin (Halfprin) 81 mg PO DAILY [facility] Last Admin: 01/28/18 08:41 Dose: 81 mg Budesonide (Pulmicort) 0.5 mg INH BIDRT [facility] Last Admin: 01/28/18 07:55 Dose: 0.5 mg Furosemide (Lasix) 40 mg IVPUSH DAILY [facility] Gabapentin (Neurontin) 300 mg PO BEDTIME [facility] Last Admin: 01/27/18 21:04 Dose: 300 mg Ipratropium [place] (Atrovent 0.03% Nasal [place]) 0 ml RAFAT BID [facility] Last Admin: 01/28/18 08:41 Dose: 2 spray Ketotifen Fumarate (Ketotifen 0.025% Ophth Soln) 0 ml EYEBOTH BID [facility] Last Admin: 01/28/18 08:42 Dose: 2 drop Levetiracetam (Keppra) 500 mg PO BID [facility] Last Admin: 01/28/18 08:42 Dose: 500 mg Metoprolol Tartrate (Lopressor) 12.5 mg PO BID [facility] Last Admin: 01/28/18 08:50 Dose: 12.5 mg Morphine Sulfate (Morphine) 2 mg IVPUSH Q1H PRN PRN Reason: Chest Pain Last Admin: 01/28/18 07:49 Dose: 2 mg Ondansetron HCl (Zofran Odt) 4 mg PO Q6H PRN PRN Reason: Nausea able to take PO Pantoprazole Sodium (Protonix) 40 mg PO DAILY@0730 [facility] Last Admin: 01/28/18 08:41 Dose: 40 mg Polyethylene Glycol (Miralax) 17 gm PO DAILY PRN PRN Reason: Constipation Prednisone (Prednisone) 4 mg PO QAM [facility] Last Admin: 01/28/18 08:50 Dose: 4 mg Senna/Docusate Sodium (Senna Plus) 1 tab PO BID PRN PRN Reason: Constipation Sertraline HCl (Zoloft) 25 mg PO DAILY [facility] Last Admin: 01/28/18 08:51 Dose: 25 mg Simvastatin (Zocor) 40 mg PO BEDTIME [facility] Last Admin: 01/27/18 21:05 Dose: 40 mg Sodium Chloride (Saline Flush) 10 ml FLUSH ASDIRECTED PRN PRN Reason: Keep Vein Open Sucralfate (Carafate) 1 gm PO QIDACANDBED [facility] Tamsulosin HCl (Flomax) 0.4 mg PO BEDTIME [facility] Last Admin: 01/27/18 21:04 Dose: 0.4 mg Warfarin Sodium (Coumadin) 7.5 mg PO DAILY@1300 [facility] Discontinued Medications Aspirin (Aspirin) 324 mg PO ONETIME ONE Stop: 01/27/18 17:43 Last Admin: 01/27/18 18:16 Dose: 324 mg Aspirin (Aspirin) Confirm Administered Dose 162 mg .ROUTE .STK-MED ONE Stop: 01/27/18 18:16 Last Admin: 01/27/18 18:58 Dose: Not Given Budesonide (Pulmicort) 0.5 mg INH BID [facility] Last Admin: 01/27/18 21:05 Dose: 0.5 mg Furosemide (Lasix) 40 mg IVPUSH ONETIME ONE Stop: 01/27/18 16:23 Last Admin: 01/27/18 17:25 Dose: 40 mg Sucralfate (Carafate) 1 gm PO QID [facility] Last Admin: 01/28/18 06:36 Dose: Not Given - Exam Quality Assessment: Supplemental Oxygen General: Mild Distress. No: Alert, Oriented Neck: Supple Lungs: Decreased Breath Sounds (both bases), Crackles (both bases). No: Normal Respiratory Effort (increased work of breathing), Wheezing Cardiovascular: Regular Rate, Regular Rhythm, Murmurs GI/Abdominal Exam: Soft, No Distention Extremities: Pedal Edema (mild bilateral ankle edema) Skin: Warm, Dry Psy/Mental Status: No: Alert, Anxious - Problem List & Annotations (1) Congestive heart failure SNOMED Code(s): 54391058 Code(s): I50.9 - HEART FAILURE, UNSPECIFIED Status: Acute Current Visit: Yes Qualifiers: Heart failure type: diastolic Heart failure chronicity: acute on chronic Qualified Code(s): I50.33 - Acute on chronic diastolic (congestive) heart failure (2) Paroxysmal atrial fibrillation SNOMED Code(s): 702831846 Code(s): I48.0 - PAROXYSMAL ATRIAL FIBRILLATION Status: Chronic Current Visit: Yes (3) Coronary artery disease SNOMED Code(s): 69351712 Code(s): I25.10 - ATHSCL HEART DISEASE OF [place] CORONARY ARTERY W/O ANG PCTRS Status: Chronic Current Visit: Yes Qualifiers: Coronary Disease-Associated Artery/Lesion type: [place] artery [place] vs. transplanted heart: [place] heart Associated angina: without angina Qualified Code(s): I25.10 - Atherosclerotic heart disease of [place] coronary artery without angina pectoris (4) Cerebrovascular disease SNOMED Code(s): 08232633 Code(s): I67.9 - CEREBROVASCULAR DISEASE, UNSPECIFIED Status: Chronic Current Visit: Yes (5) Prostate cancer SNOMED Code(s): 270448337 Code(s): C61 - MALIGNANT NEOPLASM OF PROSTATE Status: Chronic Current Visit: Yes - Problem List Review Problem List Initiated/Reviewed/Updated: Yes - My Orders Last 24 Hours: My Active Orders 01/27/18 16:21 RT Aerosol Therapy [RC] ASDIRECTED Acetaminophen [Tylenol] 650 mg PO Q4H PRN Albuterol [Proventil Neb Soln] 2.5 mg NEB Q4H PRN 01/27/18 16:22 EKG Documentation Completion [RC] ASDIRECTED Urinary Catheter Assessment [RC] ASDIRECTED EKG 12 Lead [EK] Urgent 01/27/18 16:30 Insert Bañuelos Catheter [Insert Urinary Catheter] [OM.PC] Q24H 01/27/18 16:48 Bedrest Bathroom Privileges [RC] ASDIRECTED Height and Weight [RC] DAILY Up With Assistance [RC] ASDIRECTED Docusate Sodium/Sennosides [Senna Plus] 1 tab PO BID PRN Ondansetron [Zofran ODT] 4 mg PO Q6H PRN Polyethylene Glycol 3350 [MiraLAX] 17 gm PO DAILY PRN Sodium Chloride 0.9% [Saline Flush] 10 ml FLUSH ASDIRECTED PRN Saline Lock Insert [OM.PC] Routine Resuscitation Status Routine 01/27/18 16:49 Patient Status [ADT] Routine Oxygen Therapy [RC] PRN VTE/DVT Education [RC] Per Unit Routine Vital Signs [RC] Q4H 01/27/18 16:50 Intake and Output [RC] QSHIFT Notify Provider Vital Signs [RC] ASDIRECTED 01/27/18 17:42 Telemetry Monitoring [Cardiac Monitoring] [RC] .As Directed Morphine 2 mg IVPUSH Q1H PRN 01/27/18 17:43 EKG Documentation Completion [RC] ASDIRECTED 01/27/18 19:15 UA W/MICROSCOPIC [URIN] Routine 01/27/18 21:00 Gabapentin [Neurontin] 300 mg PO BEDTIME Hypromellose [Natural Balance Tears] 0 ml EYEBOTH BID Ipratropium [Atrovent 0.03% Nasal [place]] 0 ml RAFAT BID Ketotifen [Ketotifen 0.025% Ophth Soln] 0 ml EYEBOTH BID Metoprolol Tartrate [Lopressor] 12.5 mg PO BID Simvastatin [Zocor] 40 mg PO BEDTIME Tamsulosin [Flomax] 0.4 mg PO BEDTIME levETIRAcetam [Keppra] 500 mg PO BID 01/27/18 22:00 Acetaminophen [Tylenol] 650 mg PO QID Albuterol/Ipratropium [DuoNeb 3.0-0.5 MG/3 ML] 3 ml INH QID 01/27/18 Dinner 2 Gram Sodium Diet [DIET] 01/28/18 07:00 Echo Comp wo Cont [US] Routine Budesonide [Pulmicort] 0.5 mg INH BIDRT EKG 12 Lead [EK] Routine 01/28/18 07:30 Pantoprazole [ProTONIX] 40 mg PO DAILY@0730 01/28/18 09:00 Aspirin [Halfprin] 81 mg PO DAILY Furosemide [Lasix] 40 mg IVPUSH DAILY Sertraline [Zoloft] 25 mg PO DAILY predniSONE 4 mg PO QAM 01/28/18 09:18 Chest 1V Frontal [CR] Urgent 01/28/18 10:00 Bumetanide [Bumex] 2 mg IVPUSH ONETIME ONE 01/28/18 11:00 Sucralfate [Carafate] 1 gm PO QIDACANDBED 01/28/18 13:00 Warfarin [Coumadin] 7.5 mg PO DAILY@1300 01/28/18 15:00 TROPONIN I [CHEM] Timed 01/29/18 05:00 BASIC METABOLIC PANEL,BMP [CHEM] Timed CBC W/O DIFF,HEMOGRAM [HEME] Timed (1) INR,PT,PROTHROMBIN TIME [COAG] Timed TROPONIN I [CHEM] Timed - Plan Plan:: ASSESSMENT AND PLAN - Congestive heart failure - history of diastolic dysfunction. Echo today showed mildly reduced ejection fraction, moderate aortic insufficiency as well as moderately severe mitral regurgitation. IVC was dilated. Urine output not impressive with furosemide administered last evening. He has hypoxic this morning. Chest x-ray shows ongoing evidence for pulmonary vascular congestion and pulmonary edema. -Bumetanide 2 mg 1 and reassess volume status this afternoon -strict intake and output monitoring -Supplement oxygen as needed -Daily weights -Continue beta katherin -Blood pressure too low to initiate EVELIO inhibitor at this time Elevated troponin - suspect demand ischemia in the setting of congestive heart failure complicating coronary artery disease with previous bypass surgery. Level has been stable despite the moderate elevation. EKG did show some mild lateral depressions with T-wave inversions in this is slightly better today. No ST elevations were noted. -Repeat level this afternoon and in the morning -Medical management as above Hypoactive delirium - suspect side effects from morphine administered overnight. Head CT did not show any evidence for intracranial bleed and head CT appear stable. -Minimize morphine use as able Paroxysmal atrial fibrillation - currently in sinus rhythm. He is chronically anticoagulated. -Continue beta katherin -Continue anticoagulation Coronary artery disease - off and on chest pain for the past month. Troponin is elevated but I suspect demand ischemia rather than Non-ST myocardial infarction. -Aspirin daily -Continue medical management COPD - he is steroid-dependent though he is only on a low dose. He is now hypoxic. I don't believe there is an active infection but I think he would benefit from increased steroid dosing during the acute phase of his congestive heart failure. 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 -Continue antiepileptic medication Tobacco dependence - patient had been smoking up until the time of admission and has smoked for more than 60 years. -Encourage cessation Encounter for palliative care - patient and family were not interested in transfer or aggressive interventions and prefer that things be treated locally and medically. Maintenance issues - - DVT prophylaxis - warfarin - GI prophylaxis - PPI - Nutrition - low sodium - Bañuelos catheter - placed for strict intake and output monitoring in the setting of urinary obstruction secondary to prostate cancer. Disposition - anticipate [facility] to the [facility] after the hospital stay Jose Enrique Qiu M.D.
[2018-01-28] MEDS ORDERED: Bumetanide 1 MG/4 ML MDV IVPUSH ONE ×2 (10:00→21:00)
[2018-01-28] MEDS: methylPREDNISolone Sodium Succinate 125 MG/2 ML SDV IVPUSH SCH ×2 (12:36→21:01)
[2018-01-28] MEDS: Warfarin 2.5 MG Tab PO SCH (12:38)
--- NOTE | 2018-01-28 13:29 | CT ---
Head wo Cont HISTORY: Head trauma COMPARISON: November 2014. FINDINGS:There is advanced central and cortical cerebral atrophy consistent with age. There is no hem orrhage, mass effect, or edema. There is diffuse low attenuation consistent with encephalomalacia inv olving the bilateral frontal lobes in the majority of the right cerebral hemisphere. The findings lik bren reflect areas of chronic infarct. There is partial resolution of right maxillary sinus consolidat ion. Impression: 1. Chronic atrophy and encephalomalacia. No significant interval change. No acute intracranial findin gs.
[2018-01-28] MEDS ORDERED: WITCH HAZEL TOP PRN (13:45)
[2018-01-28] MEDS ORDERED: Bumetanide 1 MG/4 ML MDV ONE (20:56)
[2018-01-28] MEDS: Gabapentin 300 MG Cap PO SCH (20:57)
[2018-01-28] MEDS: Tamsulosin 0.4 MG Cap.ER PO SCH (21:00)
[2018-01-28] MEDS: Simvastatin 20 MG Tab PO SCH (21:00)
[2018-01-29] MEDS: methylPREDNISolone Sodium Succinate 125 MG/2 ML SDV IVPUSH SCH (04:16)
[2018-01-29] MEDS: Acetaminophen 325 MG Tab PO SCH ×4 (05:05→21:40)
[2018-01-29] MEDS: Budesonide 0.5 MG/2 ML Neb Susp INH SCH ×2 (07:26→20:41)
[2018-01-29] MEDS: Albuterol/Ipratropium 3.0-0.5 MG/3 ML Neb Soln INH SCH ×4 (07:26→20:34)
[2018-01-29] MEDS: Pantoprazole 40 MG Tab.CR PO SCH (08:33)
[2018-01-29] MEDS: Sucralfate 1 GM Tab PO SCH ×4 (08:33→20:27)
[2018-01-29] MEDS: Ipratropium 0.03% Nasal Spray 30 ML Bot NAS SCH ×2 (08:34→20:27)
[2018-01-29] MEDS: levETIRAcetam 250 MG Tab PO SCH ×2 (08:35→20:35)
[2018-01-29] MEDS: Aspirin 81 MG Tab.EC PO SCH (08:35)
[2018-01-29] MEDS: Metoprolol Tartrate 25 MG Tab PO SCH ×2 (08:35→20:35)
[2018-01-29] MEDS: Hypromellose 0.4% Ophth Soln 15 ML Bottle EYEBOTH SCH ×2 (08:36→20:38)
[2018-01-29] MEDS: Ketotifen 0.025% Ophth Soln 5 ML Bottle EYEBOTH SCH ×2 (08:36→20:29)
[2018-01-29] MEDS: Sertraline 25 MG Tab PO SCH (08:37)
--- NOTE | 2018-01-29 09:19 | PCM.PN ---
- General Info Date of Service: 01/29/18 Functional Status: Reports: Pain Controlled, Tolerating Diet - Review of Systems General: Reports: Weakness Pulmonary: Reports: Shortness of Breath Cardiovascular: Reports: Edema Systems Review Comment:: no acute events overnight. Good diuresis yesterday with the bumetanide.patient feels less short of breath today and feels better overall. He reports that he has some mild intermittent chest pain but in general is feeling better. He is much more alert and interactive today and is up in the chair. He has not had any fevers. No bowel movement since admission. Troponin level trending down. - Patient Data Vitals - Most Recent: Last Vital Signs Temp 36.1 C 01/29/18 07:52 Pulse 77 01/29/18 08:35 Resp 20 01/29/18 07:52 BP 118/64 01/29/18 08:35 Pulse Ox 97 01/29/18 07:52 Weight - Most Recent: 90.582 kg I&O - Last 24 Hours: Intake & Output 01/28/18 01/29/18 01/29/18 22:59 06:59 14:59 Intake Total 240 Output Total 740 850 Balance -500 -850 Lab Results Last 24 Hours: Laboratory Results - last 24 hr 01/28/18 01/29/18 01/29/18 Range/Units 15:00 05:37 05:37 WBC 6.0 (4.5-11.0) K/uL RBC 3.57 L (4.30-5.90) M/uL Hgb 12.2 (12.0-15.0) g/dL Hct 37.5 L (40.0-54.0) % MCV 105 H (80-98) fL MCH 34 H (27-31) pg MCHC 33 (32-36) % Plt Count 297 (150-400) K/uL PT 26.0 H (9.5-12.0) sec INR 2.49 H (0.80-1.20) Sodium (140-148) mmol/L Potassium (3.6-5.2) mmol/L Chloride (100-108) mmol/L Carbon Dioxide (21-32) mmol/L Anion Gap (5.0-14.0) mmol/L BUN (7-18) mg/dL Creatinine (0.8-1.3) mg/dL Est Cr Clr Drug Dosing mL/min Estimated GFR (MDRD) (>60) Glucose (74-106) mg/dL Calcium (8.5-10.1) mg/dL Troponin I 1.455 H* (0.000-0.056) ng/mL 01/29/18 Range/Units 05:37 WBC (4.5-11.0) K/uL RBC (4.30-5.90) M/uL Hgb (12.0-15.0) g/dL Hct (40.0-54.0) % MCV (80-98) fL MCH (27-31) pg MCHC (32-36) % Plt Count (150-400) K/uL PT (9.5-12.0) sec INR (0.80-1.20) Sodium 133 L (140-148) mmol/L Potassium 4.5 (3.6-5.2) mmol/L Chloride 94 L (100-108) mmol/L Carbon Dioxide 31 (21-32) mmol/L Anion Gap 12.5 (5.0-14.0) mmol/L BUN 22 H (7-18) mg/dL Creatinine 1.0 (0.8-1.3) mg/dL Est Cr Clr Drug Dosing 50.13 mL/min Estimated GFR (MDRD) > 60 (>60) Glucose 169 H (74-106) mg/dL Calcium 8.9 (8.5-10.1) mg/dL Troponin I 0.967 H* (0.000-0.056) ng/mL Med Orders - Current: Current Medications Acetaminophen (Tylenol) 650 mg PO Q4H PRN PRN Reason: Pain/Fever Last Admin: 01/28/18 00:04 Dose: 650 mg Acetaminophen (Tylenol) 650 mg PO QID [facility] Last Admin: 01/29/18 05:05 Dose: 650 mg Albuterol (Proventil Neb Soln) 2.5 mg NEB Q4H PRN PRN Reason: Shortness of Breath Last Admin: 01/27/18 19:35 Dose: 2.5 mg Albuterol/Ipratropium (Duoneb 3.0-0.5 Mg/3 Ml) 3 ml INH QIDRT [facility] Last Admin: 01/29/18 07:26 Dose: 3 ml Artificial Tears (Natural Balance Tears) 0 ml EYEBOTH BID [facility] Last Admin: 01/29/18 08:36 Dose: 1 drop Aspirin (Halfprin) 81 mg PO DAILY [facility] Last Admin: 01/29/18 08:35 Dose: 81 mg Budesonide (Pulmicort) 0.5 mg INH BIDRT [facility] Last Admin: 01/29/18 07:26 Dose: 0.5 mg Bumetanide (Bumex) 2 mg IVPUSH DAILY [facility] Gabapentin (Neurontin) 300 mg PO BEDTIME [facility] Last Admin: 01/28/18 20:57 Dose: 300 mg Ipratropium [place] (Atrovent 0.03% Nasal [place]) 0 ml RAFAT BID [facility] Last Admin: 01/29/18 08:34 Dose: 2 spray Ketotifen Fumarate (Ketotifen 0.025% Ophth Soln) 0 ml EYEBOTH BID [facility] Last Admin: 01/29/18 08:36 Dose: 2 drop Levetiracetam (Keppra) 500 mg PO BID [facility] Last Admin: 01/29/18 08:35 Dose: 500 mg Metoprolol Tartrate (Lopressor) 12.5 mg PO BID [facility] Last Admin: 01/29/18 08:35 Dose: 12.5 mg Morphine Sulfate (Morphine) 2 mg IVPUSH Q1H PRN PRN Reason: Chest Pain Last Admin: 01/28/18 23:17 Dose: 2 mg Ondansetron HCl (Zofran Odt) 4 mg PO Q6H PRN PRN Reason: Nausea able to take PO Pantoprazole Sodium (Protonix) 40 mg PO DAILY@0730 [facility] Last Admin: 01/29/18 08:33 Dose: 40 mg Witch Ce Linament ((Ptom)) 0 each TOP ASDIRECTED PRN PRN Reason: DRY SKING Polyethylene Glycol (Miralax) 17 gm PO DAILY PRN PRN Reason: Constipation Senna/Docusate Sodium (Senna Plus) 1 tab PO BID PRN PRN Reason: Constipation Sertraline HCl (Zoloft) 25 mg PO DAILY [facility] Last Admin: 01/29/18 08:37 Dose: 25 mg Simvastatin (Zocor) 40 mg PO BEDTIME [facility] Last Admin: 01/28/18 21:00 Dose: 40 mg Sodium Chloride (Saline Flush) 10 ml FLUSH ASDIRECTED PRN PRN Reason: Keep Vein Open Sucralfate (Carafate) 1 gm PO QIDACANDBED [facility] Last Admin: 01/29/18 08:33 Dose: 1 gm Tamsulosin HCl (Flomax) 0.4 mg PO BEDTIME [facility] Last Admin: 01/28/18 21:00 Dose: 0.4 mg Warfarin Sodium (Coumadin) 7.5 mg PO DAILY@1300 [facility] Last Admin: 01/28/18 12:38 Dose: 7.5 mg Discontinued Medications Albuterol/Ipratropium (Duoneb 3.0-0.5 Mg/3 Ml) 3 ml INH QID [facility] Last Admin: 01/28/18 14:45 Dose: Not Given Aspirin (Aspirin) 324 mg PO ONETIME ONE Stop: 01/27/18 17:43 Last Admin: 01/27/18 18:16 Dose: 324 mg Aspirin (Aspirin) Confirm Administered Dose 162 mg .ROUTE .STK-MED ONE Stop: 01/27/18 18:16 Last Admin: 01/27/18 18:58 Dose: Not Given Budesonide (Pulmicort) 0.5 mg INH BID [facility] Last Admin: 01/27/18 21:05 Dose: 0.5 mg Bumetanide (Bumex) 2 mg IVPUSH ONETIME ONE Stop: 01/28/18 10:01 Last Admin: 01/28/18 10:19 Dose: 2 mg Bumetanide (Bumex) 2 mg IVPUSH ONETIME ONE Stop: 01/28/18 21:01 Last Admin: 01/28/18 20:57 Dose: 2 mg Bumetanide (Bumex) Confirm Administered Dose 1 mg .ROUTE .STK-MED ONE Stop: 01/28/18 20:57 Last Admin: 01/28/18 21:10 Dose: Not Given Furosemide (Lasix) 40 mg IVPUSH ONETIME ONE Stop: 01/27/18 16:23 Last Admin: 01/27/18 17:25 Dose: 40 mg Furosemide (Lasix) 40 mg IVPUSH DAILY [facility] Last Admin: 01/28/18 09:53 Dose: Not Given Methylprednisolone Sodium Succinate (Solu-Medrol) 62.5 mg IVPUSH Q8H [facility] Last Admin: 01/29/18 04:16 Dose: 62.5 mg Prednisone (Prednisone) 4 mg PO QAM [facility] Last Admin: 01/28/18 08:50 Dose: 4 mg Sucralfate (Carafate) 1 gm PO QID [facility] Last Admin: 01/28/18 06:36 Dose: Not Given - Exam Quality Assessment: Supplemental Oxygen General: Alert, Oriented, Cooperative, No Acute Distress Lungs: Normal Respiratory Effort, Crackles (few both bases), Wheezing (mild expiratory ) Cardiovascular: Regular Rate, Regular Rhythm, Murmurs GI/Abdominal Exam: Normal Bowel Sounds, Soft, No Distention Extremities: Pedal Edema (mild bilateral ankle edema) Psy/Mental Status: Alert, Normal Affect - Problem List & Annotations (1) Congestive heart failure SNOMED Code(s): 39141741 Code(s): I50.9 - HEART FAILURE, UNSPECIFIED Status: Acute Current Visit: Yes Qualifiers: Heart failure type: diastolic Heart failure chronicity: acute on chronic Qualified Code(s): I50.33 - Acute on chronic diastolic (congestive) heart failure (2) Paroxysmal atrial fibrillation SNOMED Code(s): 876405890 Code(s): I48.0 - PAROXYSMAL ATRIAL FIBRILLATION Status: Chronic Current Visit: Yes (3) Coronary artery disease SNOMED Code(s): 50278979 Code(s): I25.10 - ATHSCL HEART DISEASE OF [place] CORONARY ARTERY W/O ANG PCTRS Status: Chronic Current Visit: Yes Qualifiers: Coronary Disease-Associated Artery/Lesion type: [place] artery [place] vs. transplanted heart: [place] heart Associated angina: without angina Qualified Code(s): I25.10 - Atherosclerotic heart disease of [place] coronary artery without angina pectoris (4) Cerebrovascular disease SNOMED Code(s): 80316077 Code(s): I67.9 - CEREBROVASCULAR DISEASE, UNSPECIFIED Status: Chronic Current Visit: Yes (5) Prostate cancer SNOMED Code(s): 167445778 Code(s): C61 - MALIGNANT NEOPLASM OF PROSTATE Status: Chronic Current Visit: Yes - Problem List Review Problem List Initiated/Reviewed/Updated: Yes - My Orders Last 24 Hours: My Active Orders 01/28/18 09:00 Aspirin [Halfprin] 81 mg PO DAILY Sertraline [Zoloft] 25 mg PO DAILY 01/28/18 09:18 Chest 1V Frontal [CR] Urgent 01/28/18 11:00 Albuterol/Ipratropium [DuoNeb 3.0-0.5 MG/3 ML] 3 ml INH QIDRT Sucralfate [Carafate] 1 gm PO QIDACANDBED 01/28/18 13:00 Warfarin [Coumadin] 7.5 mg PO DAILY@1300 01/28/18 13:45 Patient's Own Medication [Ptom] 0 each TOP ASDIRECTED PRN 01/29/18 07:49 PT Evaluation and Treatment [CONS] Routine 01/29/18 09:00 Bumetanide [Bumex] 2 mg IVPUSH DAILY 01/29/18 09:18 Discontinue Telemetry Monitoring [Cardiac Monitoring Discontinue] [RC] Click to Edit 01/29/18 12:00 predniSONE 40 mg PO ONETIME ONE 01/29/18 21:00 Melatonin 9 mg PO BEDTIME 01/30/18 05:00 BASIC METABOLIC PANEL,BMP [CHEM] Timed CBC W/O DIFF,HEMOGRAM [HEME] Timed (1) INR,PT,PROTHROMBIN TIME [COAG] Timed TROPONIN I [CHEM] Timed 01/30/18 08:00 predniSONE 20 mg PO WITHBREAKFAST - Plan Plan:: ASSESSMENT AND PLAN - Congestive heart failure, combined, acute - echo showed mildly reduced ejection fraction, moderate aortic insufficiency as well as moderately severe mitral regurgitation. IVC was dilated. responded well to bumetanide throughout the day yesterday and is steadily improving. Still has excess volume to be removed. -Bumetanide 2 mg 1 and reassess volume status this afternoon -strict intake and output monitoring -Supplement oxygen as needed -Daily weights -Continue beta katherin -Blood pressure too low to initiate EVELIO inhibitor at this time Elevated troponin - suspect demand ischemia in the setting of congestive heart failure complicating coronary artery disease with previous bypass surgery. Level has been trending down with medical management as above. -Repeat level in the morning -Medical management as above and below Hypoactive delirium - suspect side effects from morphine administered overnight. Head CT did not show acute findings. Much better today. -Minimize morphine use as able Paroxysmal atrial fibrillation - currently in sinus rhythm. He is chronically anticoagulated. -Continue beta katherin -Continue anticoagulation Coronary artery disease - off and on chest pain for the past month. Troponin is trending down as above. No significant chest pains at this time. -Aspirin daily -Continue medical management COPD - he is steroid-dependent though and receiving IV steroids to help with possible exacerbation secondary to volume overload. Much improved after starting steroids yesterday. 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 -Continue antiepileptic medication Tobacco dependence - patient had been smoking up until the time of admission and has smoked for more than 60 years. -Encourage cessation Encounter for palliative care - patient and family were not interested in transfer or aggressive interventions and prefer that things be treated locally and medically. Maintenance issues - - DVT prophylaxis - warfarin - GI prophylaxis - PPI - Nutrition - low sodium - Bañuelos catheter - placed for strict intake and output monitoring in the setting of urinary obstruction secondary to prostate cancer. this will remain in place today with ongoing need for aggressive diuresis but hopefully can be removed in the next 1 or 2 days. Disposition - anticipate [facility] after the hospital stay Jose Enrique Qiu M.D.
[2018-01-29] MEDS: Bumetanide 2.5 MG/10 ML MDV IVPUSH SCH (09:25)
[2018-01-29] MEDS ORDERED: predniSONE 20 MG Tab PO ONE (12:00)
[2018-01-29] MEDS: Warfarin 2.5 MG Tab PO SCH (14:03)
--- NOTE | 2018-01-29 14:58 | CR ---
Portable chest Comparison: 2016. There is cardiac enlargement. There is mild vascular engorgement. There are prominent interstitial ma rkings. There is evidence for small right pleural effusion. Impression: 1. Mild CHF.
[2018-01-29] MEDS: Tamsulosin 0.4 MG Cap.ER PO SCH (20:35)
[2018-01-29] MEDS: Melatonin 3 MG Tab PO SCH (20:38)
[2018-01-29] MEDS: Gabapentin 300 MG Cap PO SCH (20:40)
[2018-01-29] MEDS: Simvastatin 20 MG Tab PO SCH (20:41)
[2018-01-30] MEDS: Budesonide 0.5 MG/2 ML Neb Susp INH SCH ×2 (07:21→20:45)
[2018-01-30] MEDS: Albuterol/Ipratropium 3.0-0.5 MG/3 ML Neb Soln INH SCH ×4 (07:21→20:45)
[2018-01-30] MEDS: Acetaminophen 325 MG Tab PO SCH ×5 (08:48→21:18)
[2018-01-30] MEDS: Sucralfate 1 GM Tab PO SCH ×4 (08:49→20:43)
[2018-01-30] MEDS: Pantoprazole 40 MG Tab.CR PO SCH (08:49)
[2018-01-30] MEDS: levETIRAcetam 250 MG Tab PO SCH ×2 (08:49→22:11)
[2018-01-30] MEDS: Ketotifen 0.025% Ophth Soln 5 ML Bottle EYEBOTH SCH ×2 (08:50→20:44)
[2018-01-30] MEDS: Hypromellose 0.4% Ophth Soln 15 ML Bottle EYEBOTH SCH ×2 (08:50→20:44)
[2018-01-30] MEDS: Ipratropium 0.03% Nasal Spray 30 ML Bot NAS SCH ×2 (08:50→20:45)
[2018-01-30] MEDS: Sertraline 25 MG Tab PO SCH (08:52)
[2018-01-30] MEDS: Aspirin 81 MG Tab.EC PO SCH (08:52)
[2018-01-30] MEDS: predniSONE 20 MG Tab PO SCH (08:59)
[2018-01-30] MEDS: Bumetanide 2.5 MG/10 ML MDV IVPUSH SCH (09:45)
[2018-01-30] MEDS: Metoprolol Tartrate 25 MG Tab PO SCH ×2 (09:47→20:43)
[2018-01-30] MEDS: Warfarin 2.5 MG Tab PO SCH (12:32)
--- NOTE | 2018-01-30 13:53 | PCM.PN ---
- General Info Date of Service: 01/30/18 Functional Status: Reports: Pain Controlled - Review of Systems General: Reports: Weakness. Denies: Fever Pulmonary: Reports: Shortness of Breath Systems Review Comment:: there were no acute events overnight. Good response to diuresis again yesterday. Lower extremity edema has resolved. He thinks her shortness of breath has been improving. No issues with chest pain in the last day. Troponin level had been trending down but is slightly higher again this morning. Appetite and energy have been improving throughout the hospital stay. - Patient Data Vitals - Most Recent: Last Vital Signs Temp 35.5 C 01/30/18 11:07 Pulse 72 01/30/18 09:47 Resp 20 01/30/18 11:07 BP 122/69 01/30/18 11:07 Pulse Ox 97 01/30/18 11:07 Weight - Most Recent: 92.986 kg I&O - Last 24 Hours: Intake & Output 01/29/18 01/30/18 01/30/18 22:59 06:59 14:59 Intake Total 1020 60 Output Total 650 300 Balance 370 -240 Lab Results Last 24 Hours: Laboratory Results - last 24 hr 01/30/18 01/30/18 01/30/18 Range/Units 04:45 04:45 04:45 WBC 9.8 (4.5-11.0) K/uL RBC 3.37 L (4.30-5.90) M/uL Hgb 11.5 L (12.0-15.0) g/dL Hct 35.3 L (40.0-54.0) % MCV 105 H (80-98) fL MCH 34 H (27-31) pg MCHC 33 (32-36) % Plt Count 311 (150-400) K/uL PT 26.8 H (9.5-12.0) sec INR 2.57 H (0.80-1.20) Sodium 130 L (140-148) mmol/L Potassium 4.5 (3.6-5.2) mmol/L Chloride 92 L (100-108) mmol/L Carbon Dioxide 30 (21-32) mmol/L Anion Gap 12.5 (5.0-14.0) mmol/L BUN 39 H D (7-18) mg/dL Creatinine 1.0 (0.8-1.3) mg/dL Est Cr Clr Drug Dosing 50.13 mL/min Estimated GFR (MDRD) > 60 (>60) Glucose 178 H (74-106) mg/dL Calcium 9.3 (8.5-10.1) mg/dL Troponin I 1.397 H* (0.000-0.056) ng/mL Med Orders - Current: Current Medications Acetaminophen (Tylenol) 650 mg PO Q4H PRN PRN Reason: Pain/Fever Last Admin: 01/28/18 00:04 Dose: 650 mg Acetaminophen (Tylenol) 650 mg PO QID [facility] Last Admin: 01/30/18 09:48 Dose: Not Given Albuterol (Proventil Neb Soln) 2.5 mg NEB Q4H PRN PRN Reason: Shortness of Breath Last Admin: 01/27/18 19:35 Dose: 2.5 mg Albuterol/Ipratropium (Duoneb 3.0-0.5 Mg/3 Ml) 3 ml INH QIDRT [facility] Last Admin: 01/30/18 11:07 Dose: 3 ml Artificial Tears (Natural Balance Tears) 0 ml EYEBOTH BID [facility] Last Admin: 01/30/18 08:50 Dose: 1 drop Aspirin (Halfprin) 81 mg PO DAILY [facility] Last Admin: 01/30/18 08:52 Dose: 81 mg Budesonide (Pulmicort) 0.5 mg INH BIDRT [facility] Last Admin: 01/30/18 07:21 Dose: 0.5 mg Gabapentin (Neurontin) 300 mg PO BEDTIME [facility] Last Admin: 01/29/18 20:40 Dose: 300 mg Ipratropium [place] (Atrovent 0.03% Nasal [place]) 0 ml RAFAT BID [facility] Last Admin: 01/30/18 08:50 Dose: 2 spray Ketotifen Fumarate (Ketotifen 0.025% Ophth Soln) 0 ml EYEBOTH BID [facility] Last Admin: 01/30/18 08:50 Dose: 2 drop Levetiracetam (Keppra) 500 mg PO BID [facility] Last Admin: 01/30/18 08:49 Dose: 500 mg Melatonin (Melatonin) 9 mg PO BEDTIME [facility] Last Admin: 01/29/18 20:38 Dose: 9 mg Metoprolol Tartrate (Lopressor) 12.5 mg PO BID [facility] Last Admin: 01/30/18 09:47 Dose: 12.5 mg Ondansetron HCl (Zofran Odt) 4 mg PO Q6H PRN PRN Reason: Nausea able to take PO Pantoprazole Sodium (Protonix) 40 mg PO DAILY@0730 [facility] Last Admin: 01/30/18 08:49 Dose: 40 mg Witch Ce Linament ((Ptom)) 0 each TOP ASDIRECTED PRN PRN Reason: DRY SKING Polyethylene Glycol (Miralax) 17 gm PO DAILY PRN PRN Reason: Constipation Last Admin: 01/29/18 11:31 Dose: 17 gm Prednisone (Prednisone) 20 mg PO WITHBREAKFAST [facility] Last Admin: 01/30/18 08:59 Dose: 20 mg Senna/Docusate Sodium (Senna Plus) 1 tab PO BID PRN PRN Reason: Constipation Sertraline HCl (Zoloft) 25 mg PO DAILY [facility] Last Admin: 01/30/18 08:52 Dose: 25 mg Simvastatin (Zocor) 40 mg PO BEDTIME [facility] Last Admin: 01/29/18 20:41 Dose: 40 mg Sodium Chloride (Saline Flush) 10 ml FLUSH ASDIRECTED PRN PRN Reason: Keep Vein Open Sucralfate (Carafate) 1 gm PO QIDACANDBED [facility] Last Admin: 01/30/18 12:32 Dose: 1 gm Tamsulosin HCl (Flomax) 0.4 mg PO BEDTIME [facility] Last Admin: 01/29/18 20:35 Dose: 0.4 mg Warfarin Sodium (Coumadin) 7.5 mg PO DAILY@1300 [facility] Last Admin: 01/30/18 12:32 Dose: 7.5 mg Discontinued Medications Albuterol/Ipratropium (Duoneb 3.0-0.5 Mg/3 Ml) 3 ml INH QID [facility] Last Admin: 01/28/18 14:45 Dose: Not Given Aspirin (Aspirin) 324 mg PO ONETIME ONE Stop: 01/27/18 17:43 Last Admin: 01/27/18 18:16 Dose: 324 mg Aspirin (Aspirin) Confirm Administered Dose 162 mg .ROUTE .STK-MED ONE Stop: 01/27/18 18:16 Last Admin: 01/27/18 18:58 Dose: Not Given Budesonide (Pulmicort) 0.5 mg INH BID [facility] Last Admin: 01/27/18 21:05 Dose: 0.5 mg Bumetanide (Bumex) 2 mg IVPUSH ONETIME ONE Stop: 01/28/18 10:01 Last Admin: 01/28/18 10:19 Dose: 2 mg Bumetanide (Bumex) 2 mg IVPUSH ONETIME ONE Stop: 01/28/18 21:01 Last Admin: 01/28/18 20:57 Dose: 2 mg Bumetanide (Bumex) Confirm Administered Dose 1 mg .ROUTE .STK-MED ONE Stop: 01/28/18 20:57 Last Admin: 01/28/18 21:10 Dose: Not Given Bumetanide (Bumex) 2 mg IVPUSH DAILY [facility] Last Admin: 01/30/18 09:45 Dose: 2 mg Furosemide (Lasix) 40 mg IVPUSH ONETIME ONE Stop: 01/27/18 16:23 Last Admin: 01/27/18 17:25 Dose: 40 mg Furosemide (Lasix) 40 mg IVPUSH DAILY [facility] Last Admin: 01/28/18 09:53 Dose: Not Given Methylprednisolone Sodium Succinate (Solu-Medrol) 62.5 mg IVPUSH Q8H [facility] Last Admin: 01/29/18 04:16 Dose: 62.5 mg Morphine Sulfate (Morphine) 2 mg IVPUSH Q1H PRN PRN Reason: Chest Pain Last Admin: 01/28/18 23:17 Dose: 2 mg Prednisone (Prednisone) 4 mg PO QAM [facility] Last Admin: 01/28/18 08:50 Dose: 4 mg Prednisone (Prednisone) 40 mg PO ONETIME ONE Stop: 01/29/18 12:01 Last Admin: 01/29/18 11:32 Dose: 40 mg Sucralfate (Carafate) 1 gm PO QID [facility] Last Admin: 01/28/18 06:36 Dose: Not Given - Exam Quality Assessment: Supplemental Oxygen General: Alert, Oriented, Cooperative, No Acute Distress, Lethargic Lungs: Normal Respiratory Effort, Decreased Breath Sounds (mild left lung base) , Crackles (few both bases) Cardiovascular: Regular Rate, Regular Rhythm, Murmurs GI/Abdominal Exam: Soft, No Distention Extremities: No Pedal Edema Skin: Warm, Dry Psy/Mental Status: Alert, Normal Affect - Problem List & Annotations (1) Congestive heart failure SNOMED Code(s): 85170428 Code(s): I50.9 - HEART FAILURE, UNSPECIFIED Status: Acute Current Visit: Yes Qualifiers: Heart failure type: diastolic Heart failure chronicity: acute on chronic Qualified Code(s): I50.33 - Acute on chronic diastolic (congestive) heart failure (2) Paroxysmal atrial fibrillation SNOMED Code(s): 748807729 Code(s): I48.0 - PAROXYSMAL ATRIAL FIBRILLATION Status: Chronic Current Visit: Yes (3) Coronary artery disease SNOMED Code(s): 15369362 Code(s): I25.10 - ATHSCL HEART DISEASE OF [place] CORONARY ARTERY W/O ANG PCTRS Status: Chronic Current Visit: Yes Qualifiers: Coronary Disease-Associated Artery/Lesion type: [place] artery [place] vs. transplanted heart: [place] heart Associated angina: without angina Qualified Code(s): I25.10 - Atherosclerotic heart disease of [place] coronary artery without angina pectoris (4) Cerebrovascular disease SNOMED Code(s): 24230544 Code(s): I67.9 - CEREBROVASCULAR DISEASE, UNSPECIFIED Status: Chronic Current Visit: Yes (5) Prostate cancer SNOMED Code(s): 554454042 Code(s): C61 - MALIGNANT NEOPLASM OF PROSTATE Status: Chronic Current Visit: Yes - Problem List Review Problem List Initiated/Reviewed/Updated: Yes - My Orders Last 24 Hours: My Active Orders 01/29/18 21:00 Melatonin 9 mg PO BEDTIME 01/30/18 08:00 predniSONE 20 mg PO WITHBREAKFAST 01/30/18 13:52 DC Bañuelos Catheter [Urinary Catheter Removal] [RC] Per Unit Routine 01/31/18 05:00 BASIC METABOLIC PANEL,BMP [CHEM] Timed INR,PT,PROTHROMBIN TIME [COAG] Timed - Plan Plan:: ASSESSMENT AND PLAN - Congestive heart failure, combined, acute - echo showed mildly reduced ejection fraction, moderate aortic insufficiency as well as moderately severe mitral regurgitation. IVC was dilated. he has continued to respond well to bumetanide though we've only been able to dose the medication once daily because of lower blood pressures and slowly rising creatinine/BUN. I believe we are getting close to the end of his aggressive diuresis. -strict intake and output monitoring -bumetanide 1 this morning -Supplement oxygen as needed -Daily weights -Continue beta katherin -Blood pressure still too low to initiate EVELIO inhibitor at this time Elevated troponin - suspect demand ischemia in the setting of congestive heart failure complicating coronary artery disease with previous bypass surgery. Level had been trending down with medical management as above but is slightly higher today despite ongoing improvement. -Repeat level in the morning -Medical management as above and below Hypoactive delirium - suspect side effects from morphine administered overnight. Head CT did not show acute findings. better over the past couple of days. -Minimize morphine use as able Paroxysmal atrial fibrillation - currently in sinus rhythm. He is chronically anticoagulated. -Continue beta katherin -Continue anticoagulation Coronary artery disease - off and on chest pain for the past month. Troponin is slightly higher today as above. No significant chest pains at this time. -Aspirin daily -Continue medical management COPD - he is steroid-dependent though and receiving IV steroids to help with possible exacerbation secondary to volume overload. Much improved after starting steroids. 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 -Continue antiepileptic medication Tobacco dependence - patient had been smoking up until the time of admission and has smoked for more than 60 years. -Encourage cessation Encounter for palliative care - patient and family were not interested in transfer or aggressive interventions and prefer that things be treated locally and medically. Maintenance issues - - DVT prophylaxis - warfarin - GI prophylaxis - PPI - Nutrition - low sodium - Bañuelos catheter - will be removed today Disposition - [facility], possibly tomorrow if stable overnight Jose Enrique Qiu M.D.
[2018-01-30] MEDS ORDERED: Sodium Chloride 0.9% 500 ML IV SCH (17:00)
[2018-01-30] MEDS: Simvastatin 20 MG Tab PO SCH (20:43)
[2018-01-30] MEDS: Gabapentin 300 MG Cap PO SCH (20:43)
[2018-01-30] MEDS: Tamsulosin 0.4 MG Cap.ER PO SCH (20:43)
[2018-01-30] MEDS: Melatonin 3 MG Tab PO SCH (20:43)
[2018-01-31] MEDS: Acetaminophen 325 MG Tab PO SCH ×2 (06:17→09:53)
[2018-01-31] MEDS: Sucralfate 1 GM Tab PO SCH ×2 (07:21→12:46)
[2018-01-31] MEDS: Albuterol/Ipratropium 3.0-0.5 MG/3 ML Neb Soln INH SCH ×2 (07:49→10:52)
[2018-01-31] MEDS: Budesonide 0.5 MG/2 ML Neb Susp INH SCH (07:49)
[2018-01-31] MEDS: Aspirin 81 MG Tab.EC PO SCH (09:53)
[2018-01-31] MEDS: predniSONE 20 MG Tab PO SCH (09:53)
[2018-01-31] MEDS: Pantoprazole 40 MG Tab.CR PO SCH (09:53)
[2018-01-31] MEDS: Ipratropium 0.03% Nasal Spray 30 ML Bot NAS SCH (09:54)
[2018-01-31] MEDS: Ketotifen 0.025% Ophth Soln 5 ML Bottle EYEBOTH SCH (09:54)
[2018-01-31] MEDS: Hypromellose 0.4% Ophth Soln 15 ML Bottle EYEBOTH SCH (09:54)
[2018-01-31] MEDS: Sertraline 25 MG Tab PO SCH (09:55)
[2018-01-31] MEDS: levETIRAcetam 250 MG Tab PO SCH (09:55)
[2018-01-31] MEDS: Metoprolol Tartrate 25 MG Tab PO SCH (09:55)
--- NOTE | 2018-01-31 10:30 | PCM.DCSUM1 ---
Discharge Summary - Hospital Course Brief History: 87-year-old male with history of diastolic congestive heart failure, cerebrovascular disease with left hemiparesis as well as prostate cancer who presented with shortness of breath and weakness. He was admitted for management of congestive heart failure. Diagnosis: Stroke: No - Discharge Data Discharge Date: 01/31/18 Discharge Disposition: DC/Tfer to SNF 03 Condition: Fair - Discharge Diagnosis/Problem(s) (1) Congestive heart failure SNOMED Code(s): 02151836 ICD Code: I50.9 - HEART FAILURE, UNSPECIFIED Status: Acute Current Visit : Yes Qualifiers: Heart failure type: combined systolic and diastolic Heart failure chronicity: acute on chronic Qualified Code(s): I50.43 - Acute on chronic combined systolic (congestive) and diastolic (congestive) heart failure (2) NSTEMI (non-ST elevated myocardial infarction) SNOMED Code(s): 188218837 ICD Code: I21.4 - NON-ST ELEVATION (NSTEMI) MYOCARDIAL INFARCTION Status: Acute Current Visit: Yes (3) Paroxysmal atrial fibrillation SNOMED Code(s): 729668193 ICD Code: I48.0 - PAROXYSMAL ATRIAL FIBRILLATION Status: Chronic Current Visit: Yes (4) Coronary artery disease SNOMED Code(s): 11879846 ICD Code: I25.10 - ATHSCL HEART DISEASE OF [place] CORONARY ARTERY W/O ANG PCTRS Status: Chronic Current Visit: Yes Qualifiers: Coronary Disease-Associated Artery/Lesion type: [place] artery [place] vs. transplanted heart: [place] heart Associated angina: without angina Qualified Code(s): I25.10 - Atherosclerotic heart disease of [place] coronary artery without angina pectoris (5) Cerebrovascular disease SNOMED Code(s): 22901668 ICD Code: I67.9 - CEREBROVASCULAR DISEASE, UNSPECIFIED Status: Chronic Current Visit: Yes (6) Prostate cancer SNOMED Code(s): 036268768 ICD Code: C61 - MALIGNANT NEOPLASM OF PROST[place] Status: Chronic Current Visit: Yes - Patient Summary/Data Consults: Consultations 01/29/18 07:49 PT Evaluation and Treatment [CONS] Routine Please Evaluate and Treat. PT Reason for Consult: CHF weakness Discharge Disposition: Snf Facility This query below is only for informational purposes and is not editable. Admission Diagnosis/Problem: CHF, Congestive heart failure Hospital Course: Jh presented to the urgent care clinic with progressive shortness of breath and weakness. Workup in the urgent care clinic was concerning for congestive heart failure with pulmonary edema noted on the chest x-ray. He was sent to the hospital for direct admission. At the time of presentation he initially received a dose of IV furosemide to manage her congestive heart failure based on examination and chest x-ray. He did not have a very good response to the furosemide so we elected to transition him to bumetanide. We did have a much better response to the bumetanide and we were able to slowly diuresed him over the course of several days. We did complete an echocardiogram shortly after admission which showed a mild reduction in his systolic function as well as severe diastolic dysfunction. He has multiple valvular abnormalities including severe mitral regurgitation and moderate aortic insufficiency. We have been able to make significant improvements in his volume status throughout the course of hospital stay. He will be transitioned to oral diuretics at the time of discharge and I have elected to utilize 1 mg of oral bumetanide daily. This may need some slight adjustments after discharge depending on potential changes in diet and activity when he returns to the detention. I did not initiate an EVELIO inhibitor or angiotensin receptor katherin because of borderline low blood pressures. This can be reassessed in the outpatient setting if blood pressure allows. Also noted at the time of presentation was an elevation of the troponin level at 2.3.An EKG obtained at the time of presentation revealed some nonspecific T- wave changes and some mild lateral ST depressions but no ST elevations. The patient did report that he's been having chest pain off and on for the past month. It was not clear initially of this represented a non-ST elevation myocardial injury or demand ischemia with known coronary artery disease and stress coming from the congestive heart failure and hypoxia. I did discuss the possibility of transfer to a higher level of care with cardiology with family including 2 daughters and his Masha. They did not feel that transfer was in his best interest given his advanced age and felt that medical management at this hospital would be acceptable. Troponin level remained flat initially and then started to trend down thereafter. Initially I was thinking this was more of a demand ischemia but probably represents a non-ST elevation myocardial injury. We did start him on aspirin at the time of presentation. He is on a beta katherin and his heart rate has been in the 60s. Blood pressure has been on the low side of normal. he has not had chest pain throughout the majority of the hospital stay and has been chest pain-free since the day after admission. I have elected to change from simvastatin to atorvastatin for improved lipid management. The day after admission he had hypoactive delirium. I believe this was an effective receiving several doses of morphine to help manage his chest pain the night after admission. This has resolved just by holding the morphine. He has been more alert and interactive throughout the remainder of the hospital stay. The patient is chronically anticoagulated with a history of paroxysmal atrial fibrillation. He has remained in sinus rhythm during the hospital stay. His INR did rise with his usual warfarin dosing so I have decreased his warfarin doses to 7.5 mg on Saturday and 5 mg the rest of the week. He should follow-up early next week for an INR. At baseline and his mobility is medically limited by his left hemiparesis from his previous stroke. He is more weak than usual because of his acute on chronic medical problems and would benefit from physical and occupational therapy. - Patient Instructions Diet: Low Sodium (2 gram sodium) Activity: As Tolerated Showering/Bathing: May Shower Notify Provider of: Fever, Increased Pain, Nausea and/or Vomiting Other/Special Instructions: 1. You were in the hospital for management of congestive heart failure. We have made good progress getting rid of excess fluid. I recommend that we change your outpatient diuretic to bumetanide (Bumex ) rather than the furosemide. You should take this medication once daily in the morning. We may need to make some slight adjustments depending on your diet and activity after he returned to the detention. 2. Also noted during the hospital stay was elevated troponin level. It is not entirely clear if this was related to demand ischemia from the congestive heart failure or if this did represent a non-ST elevation myocardial injury. We have added a daily aspirin to your medication regimen and I recommend that we change from simvastatin to atorvastatin to help with cholesterol management. 3. Code status - DO NOT RESUSCITATE and DO NOT INTUBATE. 4. Follow up with the Coumadin clinic early next week. I have adjusted your warfarin dosing based on observations in the hospital. 5. Referral to physical and occupational therapy for strengthening of the setting of generalized weakness following acute illness. 6. Seek medical attention if you develop fever greater than 101, you have severe shortness of breath, you develop chest pain or you have significant swelling of the lower extremities. - Discharge Plan *PRESCRIPTION DRUG MONITORING PROGRAM REVIEWED*: Not Applicable *COPY OF PRESCRIPTION DRUG MONITORING REPORT IN PATIENT JAGDISH: Not Applicable Prescriptions/Med Rec: Aspirin [Halfprin] 81 mg PO DAILY #90 tab.ec atorvaSTATin [Lipitor] 40 mg PO BEDTIME #30 tab Bumetanide 1 mg PO DAILY #30 tablet predniSONE 20 mg PO WITHBREAKFAST #2 tablet Warfarin [Coumadin] 5 mg PO ASDIRECTED #20 tablet Warfarin [Coumadin] 7.5 mg PO ASDIRECTED #20 tablet Home Medications: Home Meds Alendronate Sodium [Fosamax] 70 mg PO .WEEKLY 12/13/14 [History] Budesonide [Pulmicort] 2 ml IH BID 12/13/14 [History] Gabapentin [Neurontin] 300 mg PO BEDTIME 12/13/14 [History] Metoprolol Tartrate 12.5 mg PO BID 12/13/14 [History] Multivitamin [Multivitamins] 1 cap PO DAILY 12/13/14 [History] Tamsulosin [Flomax] 0.4 mg PO BEDTIME 12/13/14 [History] levETIRAcetam [Keppra] 500 mg PO BID 12/13/14 [History] Ipratropium/Albuterol Sulfate [Iprat-Albut 0.5-3(2.5) mg/3 ml] 1 ampule IH QID 08/12/15 [History] Acetaminophen [Tylenol] 650 mg PO QID 10/14/17 [History] Ipratropium [Atrovent 0.03% Nasal [place]] 2 spray INH BID 10/14/17 [History] Linaments 1 pad TOP DAILY PRN 10/14/17 [History] Menthol/Methyl Salicylate [BenGay Ultra Strength Crm] 1 applic TOP QID 10/14/17 [History] Leuprolide Acetate [Lupron Depot (Lupaneta)] 30 mg IM ASDIRECTED 10/15/17 [ History] Hydrocortisone [Hydrocortisone 2.5% Crm] 1 applic TOP TID PRN 11/07/17 [History] Sucralfate [Carafate] 1 gm PO QID 11/12/17 [History] Acetaminophen 650 mg PO Q6H PRN 01/27/18 [History] Albuterol/Ipratropium [DuoNeb 3.0-0.5 MG/3 ML] 3 ml INH Q4H PRN 01/27/18 [ History] Calcium Carbonate/Vitamin D3 [Calcium 600-Vit D3 800 Tablet] 1 tab PO BID [History] Carboxymethylcellulose Sodium [Refresh Tears] 1 drop EYEBOTH BID 01/27/18 [ History] Olopatadine [Patanol 0.1% Ophth Soln] 2 drop EYEBOTH BID 01/27/18 [History] Pantoprazole [ProTONIX] 40 mg PO DAILY 01/27/18 [History] Sertraline [Zoloft] 25 mg PO DAILY 01/27/18 [History] Aspirin [Halfprin] 81 mg PO DAILY #90 tab.ec 01/31/18 [Rx] Bumetanide 1 mg PO DAILY #30 tablet 01/31/18 [Rx] Warfarin [Coumadin] 5 mg PO ASDIRECTED #20 tablet 01/31/18 [Rx] Warfarin [Coumadin] 7.5 mg PO ASDIRECTED #20 tablet 01/31/18 [Rx] atorvaSTATin [Lipitor] 40 mg PO BEDTIME #30 tab 01/31/18 [Rx] predniSONE 20 mg PO WITHBREAKFAST #2 tablet 01/31/18 [Rx] predniSONE [Prednisone] 4 mg PO QAM #0 01/31/18 [Rx] Patient Handouts: Heart Failure, [id number]-[id number], Bumetanide tablets Referrals: Mehrdad Acosta MD [Primary Care Provider] - (1-2 weeks - f/u hospital stay for CHF) - Patient Data Vitals - Most Recent: Last Vital Signs Temp 36.7 C 01/31/18 07:22 Pulse 76 01/31/18 09:55 Resp 18 01/31/18 07:22 BP 118/63 01/31/18 09:55 Pulse Ox 92 L 01/31/18 07:50 Weight - Most Recent: 93.984 kg I&O - Last 24 hours: Intake & Output 01/30/18 01/31/18 01/31/18 22:59 06:59 14:59 Intake Total 240 Output Total 1100 Balance -860 Lab Results - Last 24 hrs: Laboratory Results - last 24 hr 01/31/18 01/31/18 Range/Units 05:50 05:50 PT 30.1 H (9.5-12.0) sec INR 2.91 H (0.80-1.20) Sodium 133 L (140-148) mmol/L Potassium 3.9 (3.6-5.2) mmol/L Chloride 93 L (100-108) mmol/L Carbon Dioxide 33 H (21-32) mmol/L Anion Gap 10.9 (5.0-14.0) mmol/L BUN 41 H (7-18) mg/dL Creatinine 1.0 (0.8-1.3) mg/dL Est Cr Clr Drug Dosing 50.13 mL/min Estimated GFR (MDRD) > 60 (>60) Glucose 129 H (74-106) mg/dL Calcium 9.1 (8.5-10.1) mg/dL Med Orders - Current: Current Medications Acetaminophen (Tylenol) 650 mg PO Q4H PRN PRN Reason: Pain/Fever Last Admin: 01/28/18 00:04 Dose: 650 mg Acetaminophen (Tylenol) 650 mg PO QID [facility] Last Admin: 01/31/18 09:53 Dose: 650 mg Albuterol (Proventil Neb Soln) 2.5 mg NEB Q4H PRN PRN Reason: Shortness of Breath Last Admin: 01/27/18 19:35 Dose: 2.5 mg Albuterol/Ipratropium (Duoneb 3.0-0.5 Mg/3 Ml) 3 ml INH QIDRT [facility] Last Admin: 01/31/18 07:49 Dose: 3 ml Artificial Tears (Natural Balance Tears) 0 ml EYEBOTH BID [facility] Last Admin: 01/31/18 09:54 Dose: 1 drop Aspirin (Halfprin) 81 mg PO DAILY [facility] Last Admin: 01/31/18 09:53 Dose: 81 mg Budesonide (Pulmicort) 0.5 mg INH BIDRT [facility] Last Admin: 01/31/18 07:49 Dose: 0.5 mg Gabapentin (Neurontin) 300 mg PO BEDTIME [facility] Last Admin: 01/30/18 20:43 Dose: 300 mg Ipratropium [place] (Atrovent 0.03% Nasal [place]) 0 ml RAFAT BID [facility] Last Admin: 01/31/18 09:54 Dose: 1 spray Ketotifen Fumarate (Ketotifen 0.025% Ophth Soln) 0 ml EYEBOTH BID [facility] Last Admin: 01/31/18 09:54 Dose: 1 drop Levetiracetam (Keppra) 500 mg PO BID [facility] Last Admin: 01/31/18 09:55 Dose: 500 mg Melatonin (Melatonin) 9 mg PO BEDTIME [facility] Last Admin: 01/30/18 20:43 Dose: 9 mg Metoprolol Tartrate (Lopressor) 12.5 mg PO BID [facility] Last Admin: 01/31/18 09:55 Dose: 12.5 mg Ondansetron HCl (Zofran Odt) 4 mg PO Q6H PRN PRN Reason: Nausea able to take PO Pantoprazole Sodium (Protonix) 40 mg PO DAILY@0730 [facility] Last Admin: 01/31/18 09:53 Dose: 40 mg Witch Ce Linament ((Ptom)) 0 each TOP ASDIRECTED PRN PRN Reason: DRY SKING Polyethylene Glycol (Miralax) 17 gm PO DAILY PRN PRN Reason: Constipation Last Admin: 01/29/18 11:31 Dose: 17 gm Prednisone (Prednisone) 20 mg PO WITHBREAKFAST [facility] Last Admin: 01/31/18 09:53 Dose: 20 mg Senna/Docusate Sodium (Senna Plus) 1 tab PO BID PRN PRN Reason: Constipation Sertraline HCl (Zoloft) 25 mg PO DAILY [facility] Last Admin: 01/31/18 09:55 Dose: 25 mg Simvastatin (Zocor) 40 mg PO BEDTIME [facility] Last Admin: 01/30/18 20:43 Dose: 40 mg Sodium Chloride (Saline Flush) 10 ml FLUSH ASDIRECTED PRN PRN Reason: Keep Vein Open Sucralfate (Carafate) 1 gm PO QIDACANDBED [facility] Last Admin: 01/31/18 07:21 Dose: 1 gm Tamsulosin HCl (Flomax) 0.4 mg PO BEDTIME [facility] Last Admin: 01/30/18 20:43 Dose: 0.4 mg Warfarin Sodium (Coumadin) 7.5 mg PO DAILY@1300 [facility] Last Admin: 01/30/18 12:32 Dose: 7.5 mg Discontinued Medications Albuterol/Ipratropium (Duoneb 3.0-0.5 Mg/3 Ml) 3 ml INH QID [facility] Last Admin: 01/28/18 14:45 Dose: Not Given Aspirin (Aspirin) 324 mg PO ONETIME ONE Stop: 01/27/18 17:43 Last Admin: 01/27/18 18:16 Dose: 324 mg Aspirin (Aspirin) Confirm Administered Dose 162 mg .ROUTE .STK-MED ONE Stop: 01/27/18 18:16 Last Admin: 01/27/18 18:58 Dose: Not Given Budesonide (Pulmicort) 0.5 mg INH BID [facility] Last Admin: 01/27/18 21:05 Dose: 0.5 mg Bumetanide (Bumex) 2 mg IVPUSH ONETIME ONE Stop: 01/28/18 10:01 Last Admin: 01/28/18 10:19 Dose: 2 mg Bumetanide (Bumex) 2 mg IVPUSH ONETIME ONE Stop: 01/28/18 21:01 Last Admin: 01/28/18 20:57 Dose: 2 mg Bumetanide (Bumex) Confirm Administered Dose 1 mg .ROUTE .STK-MED ONE Stop: 01/28/18 20:57 Last Admin: 01/28/18 21:10 Dose: Not Given Bumetanide (Bumex) 2 mg IVPUSH DAILY [facility] Last Admin: 01/30/18 09:45 Dose: 2 mg Furosemide (Lasix) 40 mg IVPUSH ONETIME ONE Stop: 01/27/18 16:23 Last Admin: 01/27/18 17:25 Dose: 40 mg Furosemide (Lasix) 40 mg IVPUSH DAILY [facility] Last Admin: 01/28/18 09:53 Dose: Not Given Sodium Chloride (Normal Saline) 500 mls @ 250 mls/hr IV ASDIRECTED [facility] Stop: 01/30/18 19:01 Last Admin: 01/30/18 17:30 Dose: 250 mls/hr Methylprednisolone Sodium Succinate (Solu-Medrol) 62.5 mg IVPUSH Q8H [facility] Last Admin: 01/29/18 04:16 Dose: 62.5 mg Morphine Sulfate (Morphine) 2 mg IVPUSH Q1H PRN PRN Reason: Chest Pain Last Admin: 01/28/18 23:17 Dose: 2 mg Prednisone (Prednisone) 4 mg PO QAM [facility] Last Admin: 01/28/18 08:50 Dose: 4 mg Prednisone (Prednisone) 40 mg PO ONETIME ONE Stop: 01/29/18 12:01 Last Admin: 01/29/18 11:32 Dose: 40 mg Sucralfate (Carafate) 1 gm PO QID AGNES Last Admin: 01/28/18 06:36 Dose: Not Given - Exam Quality Assessment: Reports: Supplemental Oxygen General: Reports: Alert, Oriented, Cooperative, No Acute Distress Lungs: Reports: Clear to Auscultation, Normal Respiratory Effort, Decreased Breath Sounds (mild left lung base) Cardiovascular: Reports: Regular Rate, Regular Rhythm, Murmurs GI/Abdominal Exam: Soft, No Distention Extremities: No Pedal Edema Psy/Mental Status: Reports: Alert, Normal Affect
[2018-01-31 12:41] VITALS: BP 109/61
[2018-01-31] MEDS: Warfarin 2.5 MG Tab PO SCH (12:51)
== END 2018-01-31 13:05 | DRG 281 ==
LOC: JP.MS 15:49
PROVIDERS: ADMIT Internal Medicine; ATTEND Internal Medicine
DX: I11.0 Hypertensive heart disease with heart failure (principal); I21.4 Non-ST elevation (NSTEMI) myocardial infarction; I69.854 Hemiplegia and hemiparesis following other cerebrovascular disease affecting left non-dominant side; I24.8 Other forms of acute ischemic heart disease; Z66 Do not resuscitate; I50.43 Acute on chronic combined systolic (congestive) and diastolic (congestive) heart failure; I48.0 Paroxysmal atrial fibrillation; I25.10 Atherosclerotic heart disease of native coronary artery without angina pectoris; C61 Malignant neoplasm of prostate; I34.0 Nonrheumatic mitral (valve) insufficiency; I35.1 Nonrheumatic aortic (valve) insufficiency; R41.0 Disorientation, unspecified; F17.210 Nicotine dependence, cigarettes, uncomplicated; E11.9 Type 2 diabetes mellitus without complications; E78.00 Pure hypercholesterolemia, unspecified; J44.9 Chronic obstructive pulmonary disease, unspecified; G40.909 Epilepsy, unspecified, not intractable, without status epilepticus; Z91.040 Latex allergy status; Z88.0 Allergy status to penicillin; Z79.01 Long term (current) use of anticoagulants; Z79.52 Long term (current) use of systemic steroids; H91.90 Unspecified hearing loss, unspecified ear; H54.7 Unspecified visual loss
CPT/HCPCS: 36415; 51702; 70450; 70450-26; 71045; 71045-26; 80048; 81001; 83735; 84443; 84484; 85025; 85027; 85610; 93005; 93306; 94640; 97162-GP; 97530-GP; A9270-GY; J1940; J2270; J2930; J3490; J7030; J7620-GY; S0171